=== PATIENT | male | born 1975 | race Caucasian/White ===

== ENCOUNTER 2022-03-21 | Inpatient (IN) | payer MEDICARE, MEDICAID, SELFPAY ==
[2022-03-21] VITALS (83 sets, daily range): BP systolic 96–175; BP diastolic 53–108; PULSE 60–99; RESP 11–22; TEMP 36.8–37.1; O2SAT 82–100; BMI 27.5
--- NOTE | 2022-03-21 00:19 | W.ED.ARRPALP ---
HPI - Arrhythmia/Palpitations General: Chief Complaint: Arrhythmia/Palpitations Stated Complaint: defibrillator went off Time Seen by Provider: 03/21/22 00:16 History of Present Illness: Mr. Gleason is a 47-year-old gentleman with some sort of heart history presents to the emergency department due to concern over ICD discharge. He is currently in enforcement custody and reports hearing intermittent beeping/alarming from his device. Additionally had approximately 830 he reports feeling like he got shocked and has associated chest discomfort. Denies other changes in health. No shortness of breath, lightheadedness, dizziness. No syncope associated with this event. He has been fairly long lost to follow-up however apparently was seen here at our facility at some point. No other specific changes in health, exacerbating, or alleviating factors identified. Patient reports initial pacemaker placement in his 20s when he presented to the hospital for syncope. He is unsure of exact diagnosis however denies alcohol or drug use at that time. He has not been on medications and is unsure of what he used to be on for some time. 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) Surgical History History of hernia surgery History of implantable cardioverter-defibrillator (ICD) placement Family History Father CAD (coronary artery disease) Pacemaker Mother Hypothyroidism Social History Smoking and tobacco status: never smoked Alcohol intake: never Physical Exam Const: COMMON NORMALS: alert GENERAL APPEARANCE: cooperative and well developed HENMT: COMMON NORMALS: normocephalic and atraumatic HEAD & SCALP: normocephalic and atraumatic Eye: COMMON NORMALS: conjunctivae normal CONJUNCTIVA: Yes conjunctivae normal SCLERA: sclerae normal Neck/C-Spine: COMMON NORMALS: supple GENERAL: Yes trachea midline Resp: COMMON NORMALS: normal respiratory effort and clear to auscultation bilaterally EFFORT & INSPECTION: Yes able to speak in complete sentences AUSCULTATION: clear to auscultation bilaterally Cardio: COMMON NORMALS: regular rate and regular rhythm RATE: regular rate RHYTHM: regular rhythm GI: COMMON NORMALS: Soft to palpation PALPATION: Yes Soft to palpation and No Tenderness to palpation present (GI) PERCUSSION: normal to percussion Extremity: GENERAL: Yes normal exam except as noted and No edema Neuro: COMMON NORMALS: moves all extremities SENSORIUM/ORIENTATION: Yes alert and No Orientation impaired Psych: COMMON NORMALS: mental status grossly normal and Normal thought process present THOUGHT PROCESS: Normal thought process present Course ED course: - Patient was seen and evaluated by me at bedside - Patient placed on cardiac monitors, IV access obtained - Initial evaluation notable for exam as above - Labs and xrays personally interpreted by me. EKG shows dual AV paced rhythm - Labs notable for no leukocytosis, normal hemoglobin. Metabolic panel without acute abnormality to explain symptoms/arrhythmia - Imaging notable for no lobar consolidation or pneumothorax - Per verbal report from [employer] interrogation patient's device has far past its end of service date, therefore no guarantee of any intervention if patient were to develop arrhythmia. They did not observe shocked that patient reported. Last interrogation 2015. The patient occasionally has episodes of NSVT most recently on 03/15. Additionally he has had atrial arrhythmias most recently on 03/19. There is a reported right lead integrity possible issue with over sensing and noise. - Upon serial reexamination after treatment the patient was somewhat - Based on patient history, evaluation, and testing as interpreted the most likely cause of the patient's condition is end of service for ICD with unclear event that patient reported as ICD discharge - The results of ED evaluation were discussed with the patient including plan for admission due to requirement for level of care not available if discharged to prevent significant worsening/deterioration. Specifically per [employer] report essentially his device may fail at any moment without additional intervention. - Admitting service was contacted and Dr Roberts with the hospitalist service. Agreed to admit the patient - Patient was admitted without further deterioration or significant events. Note: Click bubbles or prepopulated jo in note writing are used for assistance with data collection and billing and are inherently more limited than narrative and other text portions of this note. Please use narrative for additional clinical history and defer to narrative/free test for any case of contradictory information. If information appears in only free text or click bubble it should be considered present or absent as reported. Please contact note advertising copy writer for clarifications of clinical information or contradictory information. MDM is a brief summary, contradictory or erroneous seeming information should be clarified and full note should be reviewed. Vital Signs: Vital signs: Vital Signs Temperature 98 F 03/22/22 11:28 Pulse Rate 62 03/22/22 11:28 Respiratory Rate 20 H 03/22/22 11:28 Blood Pressure 99/59 03/22/22 11:28 Pulse Oximetry 98 03/22/22 11:28 Oxygen Delivery Me thod 03/22/22 04:00 MDM - Arrhythmia/Palpitations Medical Decision Making 47-year-old gentleman with unclear cardiac history with a longstanding history of ICD/pacemaker presenting to the ER for concern over alarm and discharge. Patient's device found to be at past [id number] and at risk for failure at any time. Admitted for further management. Medical Records I reviewed the patient's medical records. Lab Data I reviewed the patient's lab results. : 03/22/22 04:22 03/22/22 04:22 Radiology Impressions Chest X-Ray 03/21/22 00:28 IMPRESSION: 1. Bibasilar opacities may represent atelectasis. 2. Mild cardiomegaly on portable view. 3. Otherwise, no acute radiographic findings in the chest. Laboratory Results WBC 9.9 10^3/uL (4.0-10.0) 03/21/22 00:32 RBC 5.92 10^6/uL (4.1-5.3) H 03/21/22 00:32 Hgb 16.3 g/dL (11.7-16.6) 03/21/22 00:32 Hct 49.8 % (42.0-52.0) 03/21/22 00:32 MCV 84.1 fl (80-94) 03/21/22 00:32 MCH 27.5 pg (28.0-34.0) L 03/21/22 00:32 MCHC 32.7 g/dL (30.0-36.0) 03/21/22 00:32 RDW 14.8 % (12.1-15.1) 03/21/22 00:32 Plt Count 260 10^3/cmm (130-400) 03/21/22 00:32 MPV 8.1 fL (7.4-10.4) 03/21/22 00:32 Neut % (Auto) 61.9 % 03/21/22 00:32 Lymph % (Auto) 24.1 % 03/21/22 00:32 [place] % (Auto) 10.8 % 03/21/22 00:32 Eos % (Auto) 2.1 % 03/21/22 00:32 Baso % (Auto) 0.9 % 03/21/22 00:32 Neut # (Auto) 6.15 10^3/uL (1.8-7.7) 03/21/22 00:32 Lymph # (Auto) 2.4 10^3/uL (0.8-4.8) 03/21/22 00:32 [place] # (Auto) 1.1 10^3/uL (0.2-0.9) H 03/21/22 00:32 Eos # (Auto) 0.2 10^3/uL (0.0-0.8) 03/21/22 00:32 Baso # (Auto) 0.1 10^3/uL (0.0-0.1) 03/21/22 00:32 Nucleated RBC % (auto) 0 % 03/21/22 00:32 Nucleated RBCs # 0.0 /100WBC 03/21/22 00:32 Sodium 138 mmol/L (136-145) 03/21/22 00:32 Potassium 3.8 mmol/L (3.5-5.1) 03/21/22 00:32 Chloride 102 mmol/L (98-107) 03/21/22 00:32 Carbon Dioxide 24 mmol/L (22-29) 03/21/22 00:32 Anion Gap 15.8 (5-19) 03/21/22 00:32 BUN 18 mg/dL (6-20) 03/21/22 00:32 Creatinine 0.7 mg/dL (0.7-1.2) 03/21/22 00:32 GFR Calculation 120.9 mL/min (90-130) 03/21/22 00:32 Glucose 101 mg/dL (65-115) 03/21/22 00:32 Estimat Average Glucose 103 03/21/22 00:32 Hemoglobin A1c 5.2 % (4.0-6.0) 03/21/22 00:32 Calculated Osmolality 288 mOsm/kg (285-295) 03/21/22 00:32 Calcium 9.5 mg/dL (8.5-10.5) 03/21/22 00:32 Magnesium 2.2 mg/dL (1.7-2.3) 03/21/22 00:32 Total Bilirubin 0.6 mg/dL (0.15-1.2) 03/21/22 00:32 AST 15 U/L (0-40) 03/21/22 00:32 ALT 22 U/L (0-41) 03/21/22 00:32 Alkaline Phosphatase 121 IU/L (40-130) 03/21/22 00:32 Troponin T Baseline 6 ng/L (0-15) 03/21/22 00:32 NT-Pro-B Natriuret Pep 153 pg/mL (0-125) H 03/21/22 00:32 Total Protein 7.8 g/dL (6.6-8.7) 03/21/22 00:32 Albumin 4.6 g/dL (3.5-5.2) 03/21/22 00:32 Globulin 3.2 g/dL (1.3-4.6) 03/21/22 00:32 Triglycerides 112 mg/dL (0-150) 03/21/22 00:32 Cholesterol 223 mg/dL (0-200) H 03/21/22 00:32 LDL Cholesterol, Calc 154 mg/dL (50-129) H 03/21/22 00:32 HDL Cholesterol 47 mg/dL (60-100) L 03/21/22 00:32 LDL/HDL Ratio 3.28 RATIO (0.00-3.22) H 03/21/22 00:32 Cholesterol/HDL Ratio 4.74 mg/dL (1.0-5.00) 03/21/22 00:32 TSH 2.66 uIU/mL (0.27-4.20) 03/21/22 00:32 TSH 2.75 uIU/mL (0.27-4.20) 03/21/22 00:32 Discharge Plan Discharge Patient Disposition: Admitted As Inpatient Admit Provider: Tj Roberts Clinical Impression: Implantable cardioverter-defibrillator (ICD) at end of device life, Chest pain Condition: Stable Discharge Diet: Cardiac Discharge Activity: Increase activity as tolerated Coding Level of Care Code ED Water Superintendent for Lionel Villarreal
--- NOTE | 2022-03-21 00:23 | ECG_ITS ---
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 Measurements Intervals [place] Rate: 89 P: 56 WI: 157 QRS: -66 QRSD: 153 T: 87 QT: 415 QTc: 506 Interpretive Statements A sense V paced rhythm No previous ECG available for comparison Electronically Signed On 03-21-2022 18:41:17 CDT by Amelia Alcantar M.D. [id number] f
--- NOTE | 2022-03-21 00:28 | XRR_ITS ---
PROCEDURE INFORMATION: Exam: XR Chest Exam date and time: 03/21/2022 12:32 AM Age: 47 years old Clinical indication: Chest pressure; Prior surgery; Patient HX: Defibrillator fired. C/O chest pain. ; Additional info: Defib TECHNIQUE: Imaging protocol: Radiologic exam of the chest. Views: 1 view. COMPARISON: CR Cervical Spine Flex/Ext [id number] 07/24/2016 2:33 PM FINDINGS: Tubes, catheters and devices: A left-sided ICD is noted with the leads terminating in the right atrium , right ventricle, and coronary sinus. Lungs: Low lung volumes and bronchovascular crowding. Mild bibasilar opacities likely atelectasis. No consolidative opacity. Pleural spaces: The left costophrenic angle is obscured. Cannot exclude small left pleural effusion. No pneumothorax. Heart/Mediastinum: The cardiomediastinal silhouette is mildly prominent on portable view. Bones/joints: Unremarkable. XR/XR chest 1V portable [id number] IMPRESSION: 1. Bibasilar opacities may represent atelectasis. 2. Mild cardiomegaly on portable view. 3. Otherwise, no acute radiographic findings in the chest.
[2022-03-21 00:36] LABS: Basophils # 0.1 10^3/uL (0.0-0.1); Basophils % 0.9 %; Eosinophils # 0.2 10^3/uL (0.0-0.8); Eosinophils % 2.1 %; Hematocrit 49.8 % (42.0-52.0); Hemoglobin 16.3 g/dL (11.7-16.6); Lymphocytes # 2.4 10^3/uL (0.8-4.8); Lymphocytes % 24.1 %; Mean Corpuscular HGB Conc 32.7 g/dL (30.0-36.0); Mean Corpuscular Hemoglobin 27.5 pg (28.0-34.0); Mean Corpuscular Volume 84.1 fl (80-94); Mean Platelet Volume 8.1 fL (7.4-10.4); Monocytes # 1.1 10^3/uL (0.2-0.9); Monocytes % 10.8 %; Neutrophils # 6.15 10^3/uL (1.8-7.7); Neutrophils % 61.9 %; Nucleated Red Blood Cells % 0 %; Platelet Count 260 10^3/cmm (130-400); Red Blood Count 5.92 10^6/uL (4.1-5.3); Red Cell Distribution Width 14.8 % (12.1-15.1); White Blood Count 9.9 10^3/uL (4.0-10.0)
[2022-03-21 01:06] LABS: Troponin(5th) Baseline 6 ng/L (0-15)
[2022-03-21 01:16] LABS: Alanine Aminotransferase 22 U/L (0-41); Albumin Level 4.6 g/dL (3.5-5.2); Alkaline Phosphatase 121 IU/L (40-130); Anion Gap 15.8 (5-19); Aspartate Amino Transferase 15 U/L (0-40); Blood Urea Nitrogen 18 mg/dL (6-20); Calcium 9.5 mg/dL (8.5-10.5); Carbon Dioxide 24 mmol/L (22-29); Chloride 102 mmol/L (98-107); Globulin 3.2 g/dL (1.3-4.6); Glomerular Filtration Rate 120.9 mL/min (90-130); Glucose 101 mg/dL (65-115); Magnesium 2.2 mg/dL (1.7-2.3); NT Pro B Type Natriuretic Pept 153 pg/mL (0-125); Osmolality Calculated 288 mOsm/kg (285-295); Potassium 3.8 mmol/L (3.5-5.1); Sodium 138 mmol/L (136-145); Thyroid Stimulating Hormone 2.66 uIU/mL (0.27-4.20); Total Bilirubin 0.6 mg/dL (0.15-1.2); Total Protein 7.8 g/dL (6.6-8.7)
--- NOTE | 2022-03-21 02:28 | ECG_ITS ---
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 Measurements Intervals [place] Rate: 59 P: 138 NE: 164 QRS: -69 QRSD: 153 T: 89 QT: 445 QTc: 444 Interpretive Statements ELECTRONIC ATRIAL PACEMAKER ELECTRONIC VENTRICULAR PACEMAKER ABNORMAL RHYTHM ECG Compared to ECG 03/21/2022 00:23:12 No significant changes Electronically Signed On 03-21-2022 18:56:30 CDT by Amelia Alcantar M.D. [id number]
--- NOTE | 2022-03-21 03:17 | PM.HP ---
Providers/Chief Complaint Admitting Physician: Tj Roberts MD Chief Complaint: defibrillator went off, CP History of Present Illness Silvio Gleason is a 47 year old male with a past medical history of recurrent syncopal episodes status post ICD placement, fibromyalgia, chronic back pain, history of methamphetamine use, who presents [facility] for chest pain, and that he is hearing his pacemaker beep and go off. Patient tells me that he had a pacemaker placed in his 20s because he used to pass out. His father also had the same issue, had a pacemaker placement, his niece has the same issue she also had a pacemaker placed. Recently he has been noticing that the pacemaker has been going off, he feels that it shocked him in the last few weeks. He also has been hearing the pacemaker beep, he is also been experiencing left-sided chest pain, sharp pain, nonradiating, no lightheadedness, dizziness, no diaphoresis, no nausea, vomiting, he thinks he might of had a coronary angiogram, has never been diagnosed with CHF Review of Systems Const: Denies: fever(s), chills, fatigue or malaise Eyes: Denies: change in vision or blurry vision ENMT: Denies: nasal congestion Resp: Denies: dyspnea, productive cough, non-productive cough or wheezing GI: Denies: abdominal pain, nausea, vomiting, hematemesis or diarrhea : Denies: flank pain, difficulty urinating, dysuria or urinary frequency Skin/Breast: Denies: rash Neuro: Denies: headache(s) Medications/Allergies Allergies Allergy/AdvReac Type Severity Reaction Status Date / Time Penicillins Allergy ADR-Itching Verified 03/21/22 00:12 PFSH Acute PFSH: Medical History (Updated 03/21/22 @ 03:24 by Tj Roberts MD) History of back pain History of fibromyalgia History of syncope Surgical History (Updated 03/21/22 @ 03:24 by Tj Roberts MD) History of hernia surgery History of implantable cardioverter-defibrillator (ICD) placement Family History (Updated 03/21/22 @ 03:24 by Tj Roberts MD) Father CAD (coronary artery disease) Pacemaker Mother Hypothyroidism Social History (Updated 03/21/22 @ 03:25 by Tj Roberts MD) Smoking and tobacco status: never smoked Alcohol intake: never Substance/Drug Use: current Substance/Drug use type: Methamphetamine Other substance/drug use details: Last use a month ago Vitals/I&O/Wt Last Vital Signs Temp 98.3 F 03/21/22 00:12 Pulse 71 03/21/22 02:01 Resp 14 03/21/22 02:01 BP 147/84 03/21/22 02:01 Pulse Ox 96 03/21/22 02:01 O2 Del Method 03/21/22 00:12 Physical Exam Const: COMMON NORMALS: no acute distress and patient oriented x3 HENMT: COMMON NORMALS: normocephalic HEAD & SCALP: normocephalic Eye: COMMON NORMALS: Equal, round and reactive pupils present and EOMs intact bilaterally Neck/C-Spine: COMMON NORMALS: no JVD Resp: COMMON NORMALS: normal respiratory effort, No retractions, No use of accessory muscles and clear to auscultation bilaterally AUSCULTATION: clear to auscultation bilaterally Cardio: COMMON NORMALS: no JVD, regular rate, regular rhythm, S1 normal heart sound present and S2 normal heart sound present RATE: regular rate RHYTHM: regular rhythm HEART SOUNDS: S1 normal heart sound present and S2 normal heart sound present GI: COMMON NORMALS: Normal to inspection, nondistended, normoactive bowel sounds present, Soft to palpation, non-tender, No hepatosplenomegaly present, no masses and no bruits PALPATION: Yes Soft to palpation and Yes No hepatosplenomegaly present Extremity: COMMON NORMALS: capillary refill normal, no clubbing, cyanosis or edema, no calf tenderness and no pedal edema Neuro: COMMON NORMALS: patient oriented x3, CN's II-XII intact bilaterally, moves all extremities and no focal motor deficits Psych: COMMON NORMALS: mental status grossly normal Data : 03/21/22 00:32 03/21/22 00:32 A&P Assessment and plan (1) Chest pain: Status: Acute (2) Implantable cardioverter-defibrillator (ICD) at end of device life: Status: Acute (3) Pacemaker lead malfunction: Status: Acute Plan Chest pain -Aspirin, statin, hold off on beta-rosalva -Cardiac echo -Serial EKGs, serial troponins -He has had frequent VT episodes, AT AF episodes -He does admit to methamphetamine use -Has been incarcerated in the last month Pacemaker placed in 2010 for recurrent syncopal episodes, patient has not he has a family history of pacemaker placement Pacemaker issue -On December 06, 2021, voiding of low battery voltage -January 14 morning, lead integrity warning, hydrate NS episodes, sensing integrity counter -No treated episodes -Has had 40 monitored VT episodes most recent was March 15, 2022, 307 AT?AF episodes most recent March 19 we will have to discuss with Dr. Ceron in cardiology in the morning about replacement -We will need to discuss with cardiology in the morning, and Dr. Craft Attestations Medical Necessity Statement*: Patient requires hospitalization, inpatient, greater than 2 midnights, for chest pain, pacemaker issue Coding Level of Care Code Acute Aluminum Molder for Trishag Agustind Diagnoses Chest pain R07.9 Implantable cardioverter-defibrillator (ICD) at end of device life Z45.02 Pacemaker lead malfunction T82.110A
--- NOTE | 2022-03-21 04:01 | USCV_ITS ---
Silvio Gleason Age: 47 Gender: M : 1975 Exam Date: 03/21/2022 05:44 Ordering Phys: Tj Roberts MD Technologist: NATALYA Exam Location: [place] Indication: SHORTNESS OF BREATH BP: 152 / 93 HR: 59 Rhythm: Sinus Technical Quality: Adequate MEASUREMENTS (Male / Female) Normal Values 2D ECHO LV Diastolic Diameter PLAX 5.4 cm 4.2 - 5.9 / 3.9 - 5.3 cm LV Systolic Diameter PLAX 4.4 cm IVS Diastolic Thickness 1.7 cm 0.6 - 1.0 / 0.6 - 0.9 cm IVS Systolic Thickness 1.8 cm LVPW Diastolic Thickness 1.3 cm 0.6 - 1.0 / 0.6 - 0.9 cm LVPW Systolic Thickness 2.0 cm LVOT Diameter 2.0 cm LV Ejection Fraction 2D Teich 38.3 % LV Ejection Fraction MOD 2C 48.5 % LV Ejection Fraction 2C AL 50.1 % LA Diameter 3.0 cm LA Width 2.5 cm LA Height 5.0 cm RA Width 2.9 cm RA Height 3.8 cm Aorta at Sinotubular Diameter 2.6 cm IVC Diameter 2.0 cm M-MODE Aortic Annulus Diameter 3.6 cm LA Ao Ratio MM 0.8 MV E Point Septal Separation 0.8 cm DOPPLER AV Peak Velocity 116.0 cm/s LVOT Peak Velocity 97.0 cm/s AV Area Cont Eq vti 2.4 cm squared AV Area Cont Eq pk 2.7 cm squared MV Peak Velocity 78.0 cm/s MV Area PHT 4.5 cm squared Mitral E to A Ratio 1.4 MV E' Velocity 69.0 cm/s TR Peak Velocity 210.4 cm/s TR Peak Gradient 17.7 mmHg TR Mean Velocity 179.3 cm/s TR Mean Gradient 13.1 mmHg TR Velocity Time Integral 68.0 cm TV Peak E Velocity 56.0 cm/s Right Atrial Pressure 3.0 mmHg Pulmonary Artery Systolic Pressu 20.7 mmHg PV Peak Velocity 140.0 cm/s RV Acceleration Time 0.1 s RV Ejection Time 0.3 s RV AcT/ET 0.2 FINDINGS Left Ventricle The left ventricle is mildly dilated. The basal septum appears to be akinetic with somewhat dyskinetic mid septum. There is an echodensity in the mid septal region? Postsurgical. Relative hypokinesia of the inferior wall segments Right Ventricle Pacemaker/defibrillator wire is noted. Normal RV size and ejection fraction Right Atrium Pacemaker wire is noted on the right 8 Left Atrium Appears to be of normal size Mitral Valve Thickened mitral valve. Trace mitral valve regurgitation. Aortic Valve No gross abnormalities noted Tricuspid Valve Trace tricuspid valve regurgitation. Pulmonic Valve No gross abnormalities noted Pericardium No pericardial effusion. Aorta Normal aortic annulus size. IVC Normal inferior vena cava. CONCLUSIONS Mildly dilated LV with adiminished ejection fraction of 50%. Wall motion normalities as mentioned above. Echodensity on the interventricular septum, ? Postsurgical Thickened mitral valve. Trace mitral valve regurgitation. Trace tricuspid valve regurgitation. Pacemaker/defibrillator wire in the right atrium and right ventricle There is no pericardial effusion. No previous study is available for comparison. Dr Estrella Farris MD FACC (Electronically Signed) Final Date: 21 March 2022 10:31 S
[2022-03-21 04:03] LABS: Troponin 5 2HR Delta 0 ABS# (0-10)
[2022-03-21 04:03] LABS: NT Pro B Type Natriuretic Pept 228 pg/mL (0-125)
[2022-03-21 04:22] LABS: Estmated Average Glucose 103; Hemoglobin A1C 5.2 % (4.0-6.0)
[2022-03-21 04:56] LABS: Chol HDL Ratio 4.74 mg/dL (1.0-5.00); Cholesterol 223 mg/dL (0-200); HDL Cholesterol 47 mg/dL (60-100); LDL Cholesterol Calculated 154 mg/dL (50-129); LDL HDL Ratio 3.28 RATIO (0.00-3.22); Thyroid Stimulating Hormone 2.75 uIU/mL (0.27-4.20); Triglycerides 112 mg/dL (0-150)
--- NOTE | 2022-03-21 06:19 | ECG_ITS ---
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 Measurements Intervals [place] Rate: 59 P: 140 [place]: 165 QRS: -66 QRSD: 150 T: 87 QT: 453 QTc: 452 Interpretive Statements ELECTRONIC ATRIAL PACEMAKER ELECTRONIC VENTRICULAR PACEMAKER ABNORMAL RHYTHM ECG Compared to ECG 03/21/2022 02:15:26 No significant changes Electronically Signed On 03-21-2022 18:56:11 CDT by Amelia Alcantar M.D. [id number]
[2022-03-21 07:13] LABS: Troponin 5 6HR 6.16 ng/L (0-15)
[2022-03-21 07:27] LABS: Troponin 5 6HR Delta 0.16 ng/L (0-12)
[2022-03-21] MEDS: amlodipine 10 mg Tablet PO (08:14)
--- NOTE | 2022-03-21 08:17 | PC.PHAR ---
pt states he takes no rx medications-pt states only takes 81mg aspirin in the am no meds pull up on ext med history
--- NOTE | 2022-03-21 09:47 | P.CONIM_ITS ---
Providers/Reason For Consult Consulting Physician/Specialty*: LUTHER Farris MD/cardiology Reason for Consult*: Patient with has PRECINCT CAPTAIN-D/having MANJIT Requesting Physician: Dr. Thomas Attending Physician: Danielle Thomas MD Primary Care Provider: Michelle Mariee History of Present Illness History of Present Illness Silvio Gleason is a 47 year old male with a history of ventricular arrhythmia, recurrent syncope, is admitted to the hospital with complaints of generalized weakness/ chest pain. He has a PRECINCT CAPTAIN-D which has been making noise for the last few weeks. The device interrogation revealed MANJIT. Cardiology consult is requested for further cardiac evaluation recommendations. This patient is a very poor historian.Patient is complaining of some vague chest pain on the left side of the chest. According to him, it is more or less c onstant. No associated shortness of breath, nausea or sweating. There may be some waxing and waning of pain. Patient has been under police custody for the last 1 month or so. He just got released. He was incarcerated for probation violation? He had a PRECINCT CAPTAIN-D,? Revision in [address] Perez at the [facility] in [facility]. The initial device was implanted by Dr. Espino at the [facility]. This patient apparently has not been to a physician for the last 2 years. He used to be followed by Dr. Fitzgerald for his heart condition and Ms Michelle Mariee as the primary care provider. He has not been to either of them for the last 2 years or so. Device showed MANJIT in November of this year.According the patient, he has not had a syncopal episode. He seems to think that he might have had a shock from the device yesterday, but is not sure. The reason for the device implantation is not very clear. Historyis suggesting that he had ventricular tachycardias. Had multiple ICD discharges over the years. He has not been taking any prescription medication for the last 2 years or so. Denies any fever or chills. No cough. He has no history for congestive heart failure. His father had an ICD ?. There is a family history of heart disease but the patient is not sure as to what kind. Patient has a history of smoking abuse and methamphetamine abuse. Questionable history of elevated blood pressure. No history for diabetes. He had a coronary angiograms in the past and was told to have no blockages(?). Review of Systems Narrative: CONSTITUTIONAL: No fever or chills. EYES: No blurring of vision or other visual disturbances lately. ENT: No hoarseness of voice, auditory disturbances or sore throat. CARDIOVASCULAR: As mentioned above. RESPIRATORY: No significant cough. GASTROINTESTINAL: No hematemesis or melena. GENITOURINARY: No dysuria or hematuria. INTEGUMENTARY: No skin rashes or history of skin cancer. NEURO: No transient ischemic attacks or amaurosis. PSYCHIATRIC: No history of psychosis or major depression. HEMATOLOGIC: No bleeding disorders or significant anemia. ENDOCRINE: No history of polyuria or polydipsia. MUSCULOSKELETAL: No recent joint pain or swelling. ALLERGY/IMMUNOLOGY: As mentioned above. Medications/Allergies Home Medications Medication Instructions Recorded Confirmed Last Taken Type aspirin 81 mg tablet,delayed 81 mg PO QAM 03/21/22 03/21/22 Unknown History release Allergies Allergy/AdvReac Type Severity Reaction Status Date / Time Penicillins Allergy ADR-Itching Verified 03/21/22 08:17 Current Medications Generic Name Dose Route Start Last Admin Trade Name Freq PRN Reason Stop Dose Admin Amlodipine Besylate 10 mg 03/21/22 09:00 03/21/22 08:14 Amlodipine 10 Mg Tablet PO 10 mg DAILY SUPRIYA Administration Aspirin 81 mg 03/21/22 09:00 03/21/22 08:22 Aspirin 81 Mg Ec Tablet PO Not Given DAILY SUPRIYA PFSH Acute PFSH: Medical History History of back pain History of fibromyalgia History of syncope Surgical History History of hernia surgery History of implantable cardioverter-defibrillator (ICD) placement Family History Father CAD (coronary artery disease) Pacemaker Mother Hypothyroidism Social History Smoking and tobacco status: never smoked Alcohol intake: never Substance/Drug Use: current Substance/Drug use type: Methamphetamine Other substance/drug use details: Last use a month ago Vitals/I&O/Wt Last Vital Signs Temp 98.7 F 03/21/22 08:00 Pulse 60 03/21/22 08:00 Resp 15 03/21/22 08:00 BP 133/81 03/21/22 08:00 Pulse Ox 96 03/21/22 08:00 O2 Del Method 03/21/22 04:02 03/20/22 03/21/22 03/21/22 22:59 06:59 14:59 Intake Total 0 / 0 0 / 0 Output Total 0 / 0 0 / 0 Balance 0 / 0 0 / 0 Weight last 48 hrs Weight 202 lb 12.8 oz Physical Exam Narrative: GENERAL: The patient is alert and oriented times three. Not in any acute distress. HEENT: No significant pallor, icterus or lymphadenopathy.Oral cavity: There are no mucous membrane lesions. Pupils are symmetrical. Fundus is not visualized. NECK: Trachea appears to be central. No masses noted. No JVD or thyromegaly appreciated. RESPIRATORY: Chest is symmetrical. No intercostals muscle retraction or any accessory muscle activation. Multiple healed scars in the left pectoralis region. There is no chest wall tenderness. Breath sounds are heard bilaterally. No rales or rhonchi heard. No evidence of any consolidation. BREASTS: Deferred. HEART: The heart sounds are normal. No S3 or S4. No significant murmurs. No pericardial rub ABDOMEN: No vessel pulsations or distention. No tenderness. No organomegaly appreciated. Bowel sounds are normally heard. Scars in the right lower quadrant, appears to have healed well : Deferred. RECTAL: Deferred. LYMPHATIC: No lymphadenopathy noted in the neck. EXTREMITIES: No edema or cyanosis. No clubbing. MUSCULOSKELETAL: No acute joint deformities or swelling SKIN: There are no significant rashes or ecchymosis NEUROPSYCHIATRIC: The patient is alert and oriented x3. Appears to be in a good mood. No tremors or rigidity noted. Data : 03/21/22 00:32 03/21/22 00:32 Other Labs: Laboratory Last Values WBC 9.9 10^3/uL (4.0-10.0) 03/21/22 00:32 RBC 5.92 10^6/uL (4.1-5.3) H 03/21/22 00:32 Hgb 16.3 g/dL (11.7-16.6) 03/21/22 00:32 Hct 49.8 % (42.0-52.0) 03/21/22 00:32 MCV 84.1 fl (80-94) 03/21/22 00:32 MCH 27.5 pg (28.0-34.0) L 03/21/22 00:32 MCHC 32.7 g/dL (30.0-36.0) 03/21/22 00:32 RDW 14.8 % (12.1-15.1) 03/21/22 00:32 Plt Count 260 10^3/cmm (130-400) 03/21/22 00:32 MPV 8.1 fL (7.4-10.4) 03/21/22 00:32 Neut % (Auto) 61.9 % 03/21/22 00:32 Lymph % (Auto) 24.1 % 03/21/22 00:32 [place] % (Auto) 10.8 % 03/21/22 00:32 Eos % (Auto) 2.1 % 03/21/22 00:32 Baso % (Auto) 0.9 % 03/21/22 00:32 Neut # (Auto) 6.15 10^3/uL (1.8-7.7) 03/21/22 00:32 Lymph # (Auto) 2.4 10^3/uL (0.8-4.8) 03/21/22 00:32 [place] # (Auto) 1.1 10^3/uL (0.2-0.9) H 03/21/22 00:32 Eos # (Auto) 0.2 10^3/uL (0.0-0.8) 03/21/22 00:32 Baso # (Auto) 0.1 10^3/uL (0.0-0.1) 03/21/22 00:32 Nucleated RBC % (auto) 0 % 03/21/22 00:32 Nucleated RBCs # 0.0 /100WBC 03/21/22 00:32 Sodium 138 mmol/L (136-145) 03/21/22 00:32 Potassium 3.8 mmol/L (3.5-5.1) 03/21/22 00:32 Chloride 102 mmol/L (98-107) 03/21/22 00:32 Carbon Dioxide 24 mmol/L (22-29) 03/21/22 00:32 Anion Gap 15.8 (5-19) 03/21/22 00:32 BUN 18 mg/dL (6-20) 03/21/22 00:32 Creatinine 0.7 mg/dL (0.7-1.2) 03/21/22 00:32 GFR Calculation 120.9 mL/min (90-130) 03/21/22 00:32 Glucose 101 mg/dL (65-115) 03/21/22 00:32 Estimat Average Glucose 103 03/21/22 00:32 Hemoglobin A1c 5.2 % (4.0-6.0) 03/21/22 00:32 Calculated Osmolality 288 mOsm/kg (285-295) 03/21/22 00:32 Calcium 9.5 mg/dL (8.5-10.5) 03/21/22 00:32 Magnesium 2.2 mg/dL (1.7-2.3) 03/21/22 00:32 Total Bilirubin 0.6 mg/dL (0.15-1.2) 03/21/22 00:32 AST 15 U/L (0-40) 03/21/22 00:32 ALT 22 U/L (0-41) 03/21/22 00:32 Alkaline Phosphatase 121 IU/L (40-130) 03/21/22 00:32 Troponin T Baseline 6 ng/L (0-15) 03/21/22 00:32 Troponin T 120 Minute 6.00 ng/L (0-15) 03/21/22 03:13 Delta Troponin T 0 ABS# (0-10) 03/21/22 03:13 Troponin T Hi Sens 6Hr 6.16 ng/L (0-15) 03/21/22 06:26 Troponin T Hi Sens 6Hr Delta 0.16 ng/L (0-12) 03/21/22 06:26 NT-Pro-B Natriuret Pep 228 pg/mL (0-125) H 03/21/22 Unknown Total Protein 7.8 g/dL (6.6-8.7) 03/21/22 00:32 Albumin 4.6 g/dL (3.5-5.2) 03/21/22 00:32 Globulin 3.2 g/dL (1.3-4.6) 03/21/22 00:32 Triglycerides 112 mg/dL (0-150) 03/21/22 00:32 Cholesterol 223 mg/dL (0-200) H 03/21/22 00:32 LDL Cholesterol, Calc 154 mg/dL (50-129) H 03/21/22 00:32 HDL Cholesterol 47 mg/dL (60-100) L 03/21/22 00:32 LDL/HDL Ratio 3.28 RATIO (0.00-3.22) H 03/21/22 00:32 Cholesterol/HDL Ratio 4.74 mg/dL (1.0-5.00) 03/21/22 00:32 TSH 2.66 uIU/mL (0.27-4.20) 03/21/22 00:32 TSH 2.75 uIU/mL (0.27-4.20) 03/21/22 00:32 EKG 1: My Interpretation: 100% a paced V paced rhythm. Further interpretation is not possible. EKG computer-generated impression: Chest X-Ray 03/21/22 00:28 IMPRESSION: 1. Bibasilar opacities may represent atelectasis. 2. Mild cardiomegaly on portable view. 3. Otherwise, no acute radiographic findings in the chest. A&P Assessment and plan (1) Implantable cardioverter-defibrillator (ICD) at end of device life: The patient is device went into MANJIT on 06 December of this year. Patient requires a device revision. This needs to be done as soon as possible. He appears to be 100% AV paced. Status: Acute (2) Chest pain: The etiology of the chest pain is not clear. The symptoms are very atypical. No evidence of any myocardial injury. Apparently was told to have no blockages by previous angiograms?. We need to get the medical records from [place]. Status: Acute (3) Pacemaker lead malfunction: Ventricular lead has a lead alert since January of last year. The ventricular lead appears to have a low impedance. The lead may need to be replaced. Status: Acute Plan Patient requires a device revision with a possible lead replacement. I will ask the [employer] sales representative door to door to come and do a detailed interrogation and then will decide on further management. He needs to be closely monitored on telemetry. Based on his clinical progress, further recommendations will be made. Consult Attestations Medical Necessity Statement: Patient requires continued hospital stay for close monitoring and further management Coding Level of Care Code Acute Loan Services Professional for Chg Fwd History Detailed Exam Detailed Medical Decision Making High Complexity Diagnoses Implantable cardioverter-defibrillator (ICD) at end of device life Z45.02 Chest pain R07.9 Pacemaker lead malfunction T82.110A
[2022-03-21 12:26] LABS: Amphetamines Screen Urine Negative (Negative); Barbiturates Screen Urine Negative (Negative); Benzodiazepines Screen Urine Negative (Negative); Cocaine Screen Urine Negative (Negative); Opiate Screen Urine Negative (Negative); PCP Screen Urine Negative (Negative); THC Screen Urine Negative (Negative)
--- NOTE | 2022-03-21 12:38 | PM.MISC ---
Miscellaneous Note Note: Patient is stating that [facility], for last few weeks he has been experiencing abnormal sounds of his pacemaker It was placed 2009 battery has now been replaced as per the patient Is no complaining active chest pain or shortness of breath Not reliable historian Currently hemodynamically stable No active chest pain 100% paced rhythm Abdomen soft No signs of edema Assessment and plan I have consulted Dr. Farris This patient might need revision of his pacemaker Currently hemodynamically stable Monitoring ICU Recent device interrogation revealed MANJIT on 06 December Lead malfunctioning Patient is full code Patient is stating that there is no family at all in case something happens to him there is no one to be contacted, Pacemaker interrogation Requesting records from [place]
--- NOTE | 2022-03-21 12:55 | PM.CONSULT ---
Providers/Reason For Consult Consulting Physician/Specialty*: Dr. Craft/cardiothoracic surgery Reason for Consult*: AICD generator at end of service Requesting Physician: Dr. Farris Attending Physician: Danielle Thomas MD History of Present Illness History of Present Illness Silvio Gleason is a 47 year old male whom I been consulted to see for AICD generator exchange with a current device now at end of service. Apparently the device was originally implanted in his 20s for recurrent ventricular arrhythmias and has had numerous discharges. He has had the generator replaced several years ago and currently now has a generator end of service. He is noted beeping for the past 2 to 3 days and believes he may have received a discharge yesterday. He was recently incarcerated though has currently been released. Original device with implanted in [facility] with a revision in [address] Fitzgerald at [facility] in [place]. Apparently there is a familial history for ventricular arrhythmias with his father having an ICD device and possibly his sister as well. [employer] territory representative has interrogated the device today and notes that the leads appear to be appropriate and that the generator is at end of service. There has been an original report that the ventricular lead had a low impedance though apparently on today's interrogation, this is not the case. Dr. Farris has requested that I perform this generator exchange. Review of Systems Card: Reports: chest pain, palpitations, irregular heart rhythm and dyspnea on exertion Resp: Denies: productive cough, non-productive cough or hemoptysis Musc: Denies: joint swelling, joint redness or muscle cramps Neuro: Denies: numbness in extremities, weakness in extremities or difficulty walking All/Imm: Reports: other (Allergy to penicillin) Medications/Allergies Home Medications Medication Instructions Recorded Confirmed Last Taken Type aspirin 81 mg tablet,delayed 81 mg PO QAM 03/21/22 03/21/22 Unknown History release Allergies Allergy/AdvReac Type Severity Reaction Status Date / Time Penicillins Allergy ADR-Itching Verified 03/21/22 08:17 Current Medications Generic Name Dose Route Start Last Admin Trade Name Freq PRN Reason Stop Dose Admin Amlodipine Besylate 10 mg 03/21/22 09:00 03/21/22 08:14 Amlodipine 10 Mg Tablet PO 10 mg DAILY SUPRIYA Administration Aspirin 81 mg 03/21/22 09:00 03/21/22 08:22 Aspirin 81 Mg Ec Tablet PO Not Given DAILY SUPRIYA PFSH Acute PFSH: Medical History History of back pain History of fibromyalgia History of syncope Surgical History History of hernia surgery History of implantable cardioverter-defibrillator (ICD) placement Family History Father CAD (coronary artery disease) Pacemaker Mother Hypothyroidism Social History Smoking and tobacco status: never smoked Alcohol intake: never Substance/Drug Use: current Substance/Drug use type: Methamphetamine Other substance/drug use details: Last use a month ago Vitals/I&O/Wt Last Vital Signs Temp 98.7 F 03/21/22 12:00 Pulse 60 03/21/22 12:00 Resp 15 03/21/22 12:00 BP 133/81 03/21/22 12:00 Pulse Ox 96 03/21/22 12:00 O2 Del Method 03/21/22 04:02 03/20/22 03/21/22 03/21/22 22:59 06:59 14:59 Intake Total 0 / 0 0 / 0 Output Total 0 / 0 1100 / 1100 Balance 0 / 0 -1100 / -1100 Weight last 48 hrs Weight 202 lb 12.8 oz Physical Exam Const: COMMON NORMALS: patient oriented x3 HENMT: COMMON NORMALS: normocephalic, atraumatic, hearing grossly normal bilaterally and external ears normal HEAD & SCALP: normocephalic and atraumatic EXTERNAL EAR: Yes external ears normal Eye: COMMON NORMALS: EOMs intact bilaterally and no scleral icterus Neck/C-Spine: COMMON NORMALS: full ROM, no lymphadenopathy and No carotid bruits Chest: OTHER: Palpable generator in the left anterior chest wall. He has scarring both on the left subclavicular region and distal right subclavicular region where an apparent coronary sinus wire has been placed. Resp: COMMON NORMALS: normal respiratory effort, No use of accessory muscles and clear to auscultation bilaterally AUSCULTATION: clear to auscultation bilaterally Cardio: COMMON NORMALS: regular rate, regular rhythm, S1 normal heart sound present and No murmurs present (Cardio) RATE: regular rate RHYTHM: regular rhythm HEART SOUNDS: S1 normal heart sound present GI: COMMON NORMALS: Normal to inspection, nondistended, normoactive bowel sounds present Extremity: COMMON NORMALS: no clubbing, cyanosis or edema Neuro: COMMON NORMALS: patient oriented x3, moves all extremities, no focal motor deficits and no sensory deficits noted Data : 03/21/22 00:32 03/21/22 00:32 A&P Assessment and plan (1) Implantable cardioverter-defibrillator (ICD) at end of device life: AICD at end of service first recorded in November of this year. Most recent interrogation today reveals that the concerning RV lead is functioning appropriately Chest x-ray is clear with a atrial and RV lead as well was appear to be a coronary sinus lead arising from the right subclavian approach with the proximal portion of the lead appeared to cross midline back to the generator. Rationale for generator exchange was discussed With Mr. Gleason who is quite aware of this having had previously had his original generator changed once already. We will attentively plan for generator exchange this evening at 4 PM. Patient has been n.p.o. since this morning. We will utilize vancomycin as already prophylactic antibiotic as he has reported allergy to penicillin. Status: Acute Consult Attestations Medical Necessity Statement: AICD end of service Coding Level of Care Code New Pt Acute Manufacturing Project Manager for Chg Fwd Patient Type New History Detailed Exam Detailed Medical Decision Making Moderate Complexity Diagnoses Implantable cardioverter-defibrillator (ICD) at end of device life Z45.02 Time Spent (min) 30
--- NOTE | 2022-03-21 13:02 | P.ANESASSM_ITS ---
Pre-Anesthetic Assessment Height/Weight: Height 1.83 m Weight 91.989 kg Temp Pulse Resp BP Pulse Ox O2 Del Method 98.7 F 60 15 133/81 96 03/21/22 12:00 03/21/22 12:00 03/21/22 12:00 03/21/22 12:00 03/21/22 12:00 03/21/22 04:02 Preop Diagnosis: End of life ICD Generator exchange Familial anesthetic complications: None Was Beta Thiago taken within 24 hours: N/A Was Clonidine taken within 24 hours: N/A Last intake: 03/20/22 Social Tobacco Hx of smoking, methamphetamine use Exam alert, oriented x 3, clear to auscultation bilaterally and regular rate & rhythm Airway Submandibular: within normal limits Cervical ROM: within normal limits Mallampati: Class I Comments: Comments: chipped teeth History/ROS No significant complaints Pulmonary None reported CXR 03/21/22 XR/XR chest 1V portable [id number] IMPRESSION: 1. Bibasilar opacities may represent atelectasis. 2. Mild cardiomegaly on portable view. 3. Otherwise, no acute radiographic findings in the chest. ? CV/HEM Arrythmia (ventricular arrhythmia hx, 100% AV paced ) Admitted w/ weakness and CP 100% paced rhythm ICD at end of life EKG 03/21/22 ?Interpretive Statements ELECTRONIC ATRIAL PACEMAKER ELECTRONIC VENTRICULAR PACEMAKER ABNORMAL RHYTHM ECG Compared to ECG 03/21/2022 02:15:26 No significant changes [email or web address] 03/21/22 TTE CONCLUSIONS ?Mildly dilated LV with adiminished ejection fraction of 50%. ?Wall motion normalities as mentioned above. ?Echodensity on the interventricular septum, ?? Postsurgical ?Thickened mitral valve. Trace mitral valve regurgitation. ?Trace tricuspid valve regurgitation. ?Pacemaker/defibrillator wire in the right atrium and right ?ventricle ?There is no pericardial effusion. ?No previous study is available for comparison. None reported Hepatic None reported GI None reported Metabolic Hyperlipidemia Musc/skel Fibromyalgia and Lower Back Pain Neuropsych None reported Anesthetic Plan ASA status: 3 Anesthesia: Anesthesia Evaluation and MAC Other: We discussed risk and benefits of general anesthesia including PONV, sore throat (sometimes severe), corneal abrasion, positioning and peripheral nerve injuries, life threatening allergic reaction, post operative ICU admission requiring prolonged intubation, aspiration, stroke, heart attack, , and rare incidences of recall. I discussed with the patient risks, goals, and benefits of MAC and general anesthesia. We discussed spectrum of MAC anesthesia including conversion to general as well as possibility of recall of intraoperative stimuli including discomfort/pain. Patient consents to MAC or General pending further discussion with surgeon. Risk of > 500 ml blood loss (7ml/kg in children): No Medications/Allergies Home Medications Medication Instructions Recorded Confirmed Last Taken Type aspirin 81 mg tablet,delayed 81 mg PO QAM 03/21/22 03/21/22 Unknown History release Allergies Allergy/AdvReac Type Severity Reaction Status Date / Time Penicillins Allergy ADR-Itching Verified 03/21/22 08:17 Current Medications Generic Name Dose Route Start Last Admin Trade Name Freq PRN Reason Stop Dose Admin Amlodipine Besylate 10 mg 03/21/22 09:00 03/21/22 08:14 Amlodipine 10 Mg Tablet PO 10 mg DAILY SUPRIYA Administration Aspirin 81 mg 03/21/22 09:00 03/21/22 08:22 Aspirin 81 Mg Ec Tablet PO Not Given DAILY SUPRIYA [facility] Anesthesia Medical History History of back pain History of fibromyalgia History of syncope Surgical History History of hernia surgery History of implantable cardioverter-defibrillator (ICD) placement Family History Father CAD (coronary artery disease) Pacemaker Mother Hypothyroidism Social History Smoking and tobacco status: never smoked Alcohol intake: never Substance/Drug Use: current Substance/Drug use type: Methamphetamine Other substance/drug use details: Last use a month ago Data Anesthesia : 03/21/22 00:32 03/21/22 00:32 Short CBC 03/21/22 Range/Units 00:32 WBC 9.9 (4.0-10.0) 10^3/uL Hgb 16.3 (11.7-16.6) g/dL Hct 49.8 (42.0-52.0) % MCV 84.1 (80-94) fl Plt Count 260 (130-400) 10^3/cmm Neut % (Auto) 61.9 % Neut # (Auto) 6.15 (1.8-7.7) 10^3/uL BMP 03/21/22 00:32 Sodium 138 Potassium 3.8 Chloride 102 Carbon Dioxide 24 BUN 18 Creatinine 0.7 Glucose 101 Calcium 9.5 Cardiac Enzymes 03/21/22 03/21/22 03/21/22 Range/Units 00:32 00:32 03:13 Troponin T Baseline 6 (0-15) ng/L Troponin T 120 Minute 6.00 (0-15) ng/L Delta Troponin T 0 (0-10) ABS# Troponin T Hi Sens 6Hr (0-15) ng/L Troponin T Hi Sens 6Hr Delta (0-12) ng/L NT-Pro-B Natriuret Pep 153 H (0-125) pg/mL 03/21/22 03/21/22 Range/Units 06:26 Unknown Troponin T Baseline (0-15) ng/L Troponin T 120 Minute (0-15) ng/L Delta Troponin T (0-10) ABS# Troponin T Hi Sens 6Hr 6.16 (0-15) ng/L Troponin T Hi Sens 6Hr Delta 0.16 (0-12) ng/L NT-Pro-B Natriuret Pep 228 H (0-125) pg/mL Liver Function 03/21/22 Range/Units 00:32 Total Bilirubin 0.6 (0.15-1.2) mg/dL AST 15 (0-40) U/L ALT 22 (0-41) U/L Alkaline Phosphatase 121 (40-130) IU/L Albumin 4.6 (3.5-5.2) g/dL Cardiac Studies: Echocardiogram 03/21/22
[2022-03-21] MEDS: chlorhexidine gluconate 4% Btl 118 mL 1 APPLIC TOPICAL (13:25)
[2022-03-21] MEDS: lactated ringers 1,000 ML 150 ML IV (13:40)
[2022-03-21] MEDS: vancomycin 1,500 MG/300 ML PIGGYBACK 200 MG IV (15:57)
[2022-03-21] MEDS: vancomycin 1,000 MG SDV 1000 MG IRRIGATION (16:25)
--- NOTE | 2022-03-21 16:53 | SUR.OPER ---
[id number] GENERATOR REMOVED ENTIRELY, INSPECTED BY DR SALVADOR. EXPLANTED DEFIB SENT WITH [employer] [employer] REP
--- NOTE | 2022-03-21 17:02 | SUR.OPER ---
1702 REPORT GIVEN TO SHERON CALIXTO. NO FURTHER INFORMATION NEEDED
--- NOTE | 2022-03-21 17:11 | PM.OP ---
Operative Report Date of procedure: March 21, 2022 Pre-op diagnosis: Preop Diagnosis End of life ICD Post-op diagnosis: same Procedure done: AICD generator exchange Implants: Medtronic AICD generator Specimens removed/disposition: Old Medtronic generator delivered to [employer] medical claims representative Pathology: none sent Surgeon: Fred Craft Anesthesia: MAC and Local Complications: None Condition: stable Disposition: ICU Brief History: Mr. Gleason is a 47-year-old gentleman with a longstanding history for malignant ventricular arrhythmias with AICD in position including coronary sinus lead. His original AICD was placed at age 22 and has had 1 replacement since that time. His current generator is now at end of service. Preoperative lead interrogations reveal all leads to be functioning appropriately. We have recommended generator exchange. Details and risk of the procedure were discussed. Proper consents have been reviewed and signed. Procedure: Mr. Gleason was taken to the operating room suite and carefully positioned on the OR table. He was carefully secured over protective padding. Anesthesia monitored conscious sedation was administered. His entire chest was then sterilely prepped and draped. 1% lidocaine was infiltrated over the old left anterior chest wall scar at the site of his most recent AICD insertion. #15 scalpel blade was utilized to incise through the skin down carefully through subtendinous tissues down to the pseudocapsule exposing the AICD generator. The pseudocapsule was carefully opened and enlarged as necessary to allow for extraction delivery of the AICD generator. Following this the new generator was brought into the field. In sequential fashion, initially beginning with a coronary sinus lead, this lead was then moved from the old generator to the new generator and secured. This was done sequentially for all leads. Old generator was removed from the field and delivered to the [employer] medical claims representative. Wound was carefully irrigated. Hemostasis confirmed. The new generator was delivered back into the subcutaneous pocket. Wound was then closed in 2 layers with 3-0 Vicryl suture. Skin was then reapproximated in a subcuticular manner with 4-0 Monocryl suture. Dermabond was then applied followed by a double pressure dressing. Interrogation of the device revealed appropriate functioning with acceptable parameters. Mr. Gleason was awakened from IV conscious sedation and transported back to the ICU in stable condition. Med[employer]onic generator is model # [id number] Serial # [id number] Right atrial lead had a P wave amplitude of 5.4 mV with an impedance of 532 ohms and a capture threshold of 0.75 v. RV lead was paced with an impedance of 418 ohms and a capture threshold of 0.75 V LV lead had an impedance of 874 ohms with a capture threshold of 0.75 V Parameters include pacing mode of DDDR with a ventricular monitor rate of 133 bpm and a V. tach detection rate of 171 bpm. Ventricular fibrillation detection rate is 200 bpm. Lower rate is 60 and upper rate is 130.
[2022-03-21] MEDS: HYDROcodone-acetaminophen 5-325 mg Tablet 1 TAB PO (18:55)
[2022-03-21] MEDS: atorvastatin 40 mg Tablet PO (20:05)
[2022-03-22] VITALS (13 sets, daily range): BP systolic 91–122; BP diastolic 59–78; PULSE 60–67; RESP 11–20; TEMP 36.6; O2SAT 95–98
[2022-03-22] MEDS: vancomycin 1,500 MG/300 ML PIGGYBACK 200 MG IV ×2 (00:11→08:28)
[2022-03-22] MEDS: HYDROcodone-acetaminophen 5-325 mg Tablet 1 TAB PO ×2 (00:21→04:34)
[2022-03-22 04:37] LABS: Basophils # 0.1 10^3/uL (0.0-0.1); Basophils % 0.6 %; Eosinophils # 0.2 10^3/uL (0.0-0.8); Eosinophils % 2.1 %; Hematocrit 45.2 % (42.0-52.0); Hemoglobin 14.5 g/dL (11.7-16.6); Lymphocytes # 2.2 10^3/uL (0.8-4.8); Lymphocytes % 22.7 %; Mean Corpuscular HGB Conc 32.1 g/dL (30.0-36.0); Mean Corpuscular Hemoglobin 27.4 pg (28.0-34.0); Mean Corpuscular Volume 85.4 fl (80-94); Mean Platelet Volume 8.2 fL (7.4-10.4); Monocytes # 1.1 10^3/uL (0.2-0.9); Monocytes % 10.8 %; Neutrophils # 6.16 10^3/uL (1.8-7.7); Neutrophils % 63.5 %; Nucleated Red Blood Cells % 0 %; Platelet Count 224 10^3/cmm (130-400); Red Blood Count 5.29 10^6/uL (4.1-5.3); Red Cell Distribution Width 14.9 % (12.1-15.1); White Blood Count 9.7 10^3/uL (4.0-10.0)
[2022-03-22 04:58] LABS: Alanine Aminotransferase 17 U/L (0-41); Albumin Level 3.7 g/dL (3.5-5.2); Alkaline Phosphatase 96 IU/L (40-130); Anion Gap 13.1 (5-19); Aspartate Amino Transferase 9 U/L (0-40); Blood Urea Nitrogen 12 mg/dL (6-20); Carbon Dioxide 27 mmol/L (22-29); Chloride 104 mmol/L (98-107); Globulin 2.7 g/dL (1.3-4.6); Glomerular Filtration Rate 120.9 mL/min (90-130); Glucose 81 mg/dL (65-115); Magnesium 2.1 mg/dL (1.7-2.3); Osmolality Calculated 289 mOsm/kg (285-295); Phosphorus 3.9 mg/dL (2.5-4.5); Potassium 4.1 mmol/L (3.5-5.1); Sodium 140 mmol/L (136-145); Total Bilirubin 0.6 mg/dL (0.15-1.2); Total Protein 6.4 g/dL (6.6-8.7)
--- NOTE | 2022-03-22 07:13 | ANE.PACU2 ---
Inpatient post-anesthesia follow up: Airway intact: Yes Vital signs: Temperature 98 F Pulse Rate 62 Respiratory Rate 20 Blood Pressure 99/59 Pulse Oximetry 98 Oxygen Delivery Me thod [Rate & Room Air Delivery Changed T o] Oxygen Delivery Me thod Room Air Oxygen Flow Rate Fraction of Inspir ed Oxygen Hydration adequate: Yes Nausea and vomiting: No Pain level: 1 Mental status: Baseline
--- NOTE | 2022-03-22 08:12 | PM.PN ---
Subjective Subjective: The patient had the device revision yesterday . Has no hematoma or bleeding. Vital signs remained stable. No new arrhythmias on the monitor. Medications: Medication Review Details: Current Medications Acetaminophen (Acetaminophen 325 Mg Tablet) 650 mg PO Q6H PRN PRN Reason: Mild/Mod Pain Or Temp >/= 101 Hydrocodone Bitart/Acetaminophen (Hydrocodone-Acetaminophen 5-325 Mg Tablet) 1 tab PO Q4H PRN PRN Reason: MODERATE PAIN Last Admin: 03/22/22 04:34 Dose: 1 tab Al Hydrox/Mg Hydrox/Simethicone (Gwov-Evn-Zigiorwta-Mishel 30 Ml Udc) 30 ml PO Q4H PRN PRN Reason: INDIGESTION Amlodipine Besylate (Amlodipine 10 Mg Tablet) 10 mg PO DAILY [facility] Last Admin: 03/21/22 08:14 Dose: 10 mg Aspirin (Aspirin 81 Mg Ec Tablet) 81 mg PO DAILY [facility] Last Admin: 03/21/22 08:22 Dose: Not Given Atorvastatin Calcium (Atorvastatin 40 Mg Tablet) 40 mg PO BEDTIME [facility] Last Admin: 03/21/22 20:05 Dose: 40 mg Bisacodyl (Bisacodyl 5 Mg Tablet) 5 mg PO Q6H PRN PRN Reason: Constipation (Use 2nd) Bisacodyl (Bisacodyl 10 Mg Supp) 10 mg KY Q6H PRN PRN Reason: Constipation (Use 5th) Bismuth Subsalicylate (Bismuth Subsalicylate 240 Ml Btl) 30 ml PO PRN PRN PRN Reason: DIARRHEA Diphenhydramine HCl (Diphenhydramine 25 Mg Capsule) 25 mg PO BEDTIME PRN PRN Reason: SLEEP Docusate Sodium (Docusate Sodium 100 Mg Capsule) 100 mg PO BID PRN PRN Reason: Constipation (Use 1st) Guaifenesin (Guaifenesin 100 Mg/5 Ml Udc 10 Ml) 200 mg PO Q4H PRN PRN Reason: COUGH Vancomycin/PEG/NADA/Lysine/Water (Vancocin) 1,500 mg in 300 mls @ 200 mls/hr IV Q8H [facility] Last Infusion: 03/22/22 01:46 Dose: Infused Lactulose (Lactulose Oral Liq 20 Gm/30 Ml Udc) 20 gm PO Q6H PRN PRN Reason: Constipation (Use 3rd) Magnesium Hydroxide (Magnesium Hydroxide 30 Ml Udc) 45 ml PO DAILY PRN PRN Reason: Constipation (use 4th) Morphine Sulfate (Morphine 4 Mg/Ml Sdv 1 Ml) 2 mg IVP Q1H PRN PRN Reason: SEVERE PAIN Promethazine HCl (Promethazine 25 Mg Supp) 25 mg KY Q6H PRN PRN Reason: NAUSEA AND VOMITING Tramadol HCl (Tramadol 50 Mg Tablet) 50 mg PO Q6H PRN PRN Reason: MODERATE PAIN Vitals/I&O/Wt Last Vital Signs Temp 98 F 03/22/22 04:00 Pulse 62 03/22/22 06:00 Resp 20 H 03/22/22 04:30 BP 99/59 03/22/22 04:30 Pulse Ox 98 03/22/22 04:30 O2 Del Method 03/22/22 04:00 03/21/22 03/22/22 03/22/22 22:59 06:59 14:59 Intake Total 237 / 237 989 / 1226 Balance 237 / -863 989 / 126 Weight last 48 hrs Weight 202 lb 12.8 oz Physical Exam Narrative: GENERAL: The patient is alert and oriented times three. Not in any acute distress. HEENT: No significant pallor, icterus or lymphadenopathy.Oral cavity: There are no mucous membrane lesions. Pupils are symmetrical. Fundus is not visualized. NECK: Trachea appears to be central. No masses noted. No JVD or thyromegaly appreciated. RESPIRATORY: The device site appears to have no hematoma or bleeding. Breath sounds are clear bilaterally with no rales or rhonchi BREASTS: Deferred. HEART: The heart sounds are normal. No S3 or S4. No significant murmurs. No pericardial rub ABDOMEN: No vessel pulsations or distention. No tenderness. No organomegaly appreciated. Bowel sounds are normally heard. Scars in the right lower quadrant, appears to have healed well : Deferred. RECTAL: Deferred. LYMPHATIC: No lymphadenopathy noted in the neck. EXTREMITIES: No edema or cyanosis. No clubbing. MUSCULOSKELETAL: No acute joint deformities or swelling SKIN: There are no significant rashes or ecchymosis NEUROPSYCHIATRIC: The patient is alert and oriented x3. Appears to be in a good mood. No tremors or rigidity noted. Data : 03/22/22 04:22 03/22/22 04:22 A&P Assessment and plan (1) Implantable cardioverter-defibrillator (ICD) at end of device life: The patient had the device revision yesterday. The lead function again was found to be in the normal range. Status: Acute (2) Chest pain: The patient has no chest pain. No shortness of breath. No other specific complaints. Status: Acute (3) Noncompliance: The importance of compliance to the follow-up device check was discussed in detail which is understood well Status: Acute Plan If the patient continues remain stable, may be discharged home today. Please make an appointment to be seen [facility] next week for a nurse check. Patient may go home with antibiotics for 5 days-Keflex 500 mg p.o. every 6 hours with multivitamins 1 tablet daily for 2 weeks Appointment with me in the office in 3 months Attestations Medical Necessity Statement*: Possible discharge home today Coding Level of Care Code Acute Net Technical Architect for Trishag Fwd History Expanded Problem Focused Exam Detailed Medical Decision Making Low Complexity Diagnoses Implantable cardioverter-defibrillator (ICD) at end of device life Z45.02 Chest pain R07.9 Noncompliance Z91.19
[2022-03-22] MEDS: aspirin 81 mg EC Tablet PO (08:29)
[2022-03-22] MEDS: amlodipine 10 mg Tablet PO (08:29)
--- NOTE | 2022-03-22 11:18 | PM.DCS ---
Discharge Providers Date of Admission: 03/21/22 01:48 Date of Discharge: March 22, 2022 Attending Provider at Admission: Tj Roberts MD Attending Provider at Discharge: Danielle Thomas MD Diagnoses at Discharge Discharge Diagnosis (1) Implantable cardioverter-defibrillator (ICD) at end of device life: Status: Acute (2) Chest pain: Status: Acute (3) Noncompliance: Status: Acute Reason for Visit Reason for Visit: defibrillator went off, CP Hospital Course Hospital Course This is a very detailed note which I am using at the time of discharge written by Dr. Farris. Silvio Gleason is a 47 year old male with a history of ventricular arrhythmia, recurrent syncope,? is admitted to the hospital with complaints of generalized weakness/ chest pain.? 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 The device interrogation revealed MANJIT.? Cardiology consult is requested for further cardiac evaluation recommendations. This patient is a very poor historian.Patient is complaining of some vague chest pain on the left side of the chest.? According to him, it is more or less constant.? No associated shortness of breath, nausea or sweating.? There may be some waxing and waning of pain.? Patient has been under police custody for the last 1 month or so.? He just got released.? He was incarcerated for probation violation? ? He had a ALEMITE OPERATOR-D,?? Revision in [address] Perez at the [facility] in [facility].? The initial device was implanted by Dr. Espino at the [facility].? This patient apparently has not been to a physician for the last 2 years.? He used to be followed by Dr. Fitzgerald for his heart condition and Ms? Michelle Kodi as the primary care provider.? He has not been to either of them for the last 2 years or so. Device showed MANJIT in November of this year.According the patient, he has not had a syncopal episode.? He seems to think that he might have had a shock from the device yesterday, but is not sure. The reason for the device implantation is not very clear.? Historyis? suggesting that he had ventricular tachycardias.? Had multiple ICD discharges over the years.? He has not been taking any prescription medication for the last 2 years or so. ? Denies any fever or chills.? No cough. He has no history for congestive heart failure.? His father had an ICD ?.? There is a family history of heart disease but the patient is not sure as to what kind. Patient has a history of smoking abuse and methamphetamine abuse.? Questionable history of elevated blood pressure.? No history for diabetes.? He had a coronary angiograms in the past and was told to have no blockages(?). On pacemaker interrogation -On December 06, 2021, voiding of low battery voltage -January 14 morning, lead integrity warning, hydrate NS episodes, sensing integrity counter -No treated episodes -Has had 40 monitored VT episodes most recent was March 15, 2022, 307 AT?AF episodes most recent March 19 we will have to discuss with Dr. Ceron in cardiology in the morning about replacemen Patient went for revision of pacemaker on 03/21. No postoperative complications. He will get Keflex, outpatient cardiology follow-up. Patient is stating that he is going home he has been released from the long-term. Physical Exam Narrative: Pleasant cooperative male No active complaint Saturating well on room air Nonfocal neuro exam Saturating well room air Pacemaker revision site has dressing, no active bleeding or hematoma Discharge Data Studies Completed and Pending Completed Studies During Hospitalization Category Date Time Status XR chest 1V portable 01301 Stat Exams 03/21/22 00:28 Completed CV. echo complete* [id number] Routine Ultrasound 03/21/22 04:01 Completed Pending at discharge Category Date Time Status Complete Blood Count w/Auto AM LABS Lab 03/23/22 04:00 Ordered Complete Blood Count w/Auto AM LABS Lab 03/24/22 04:00 Ordered Comprehensive Metabolic Panel AM LABS Lab 03/23/22 04:00 Ordered Comprehensive Metabolic Panel AM LABS Lab 03/24/22 04:00 Ordered Magnesium AM LABS Lab 03/23/22 04:00 Ordered Magnesium AM LABS Lab 03/24/22 04:00 Ordered Phosphorus AM LABS Lab 03/23/22 04:00 Ordered Phosphorus AM LABS Lab 03/24/22 04:00 Ordered Vancomycin Trough Timed Lab 03/22/22 15:00 Ordered Radiology Impressions Chest X-Ray 03/21/22 00:28 IMPRESSION: 1. Bibasilar opacities may represent atelectasis. 2. Mild cardiomegaly on portable view. 3. Otherwise, no acute radiographic findings in the chest. Laboratory Results WBC 9.7 10^3/uL (4.0-10.0) 03/22/22 04: RBC 5.29 10^6/uL (4.1-5.3) 03/22/22 04:22 Hgb 14.5 g/dL (11.7-16.6) 03/22/22 04:22 Hct 45.2 % (42.0-52.0) 03/22/22 04: MCV 85.4 fl (80-94) 03/22/22 04:22 MCH 27.4 pg (28.0-34.0) L 03/22/22 04: MCHC 32.1 g/dL (30.0-36.0) 03/22/22 04: RDW 14.9 % (12.1-15.1) 03/22/22 04:22 Plt Count 224 10^3/cmm (130-400) 03/22/22 04: MPV 8.2 fL (7.4-10.4) 03/22/22 04: Neut % (Auto) 63.5 % 03/22/22 04: Lymph % (Auto) 22.7 % 03/22/22 04: [place] % (Auto) 10.8 % 03/22/22 04: Eos % (Auto) 2.1 % 03/22/22 04: Baso % (Auto) 0.6 % 03/22/22 04: Neut # (Auto) 6.16 10^3/uL (1.8-7.7) 03/22/22 04: Lymph # (Auto) 2.2 10^3/uL (0.8-4.8) 03/22/22 04:22 [place] # (Auto) 1.1 10^3/uL (0.2-0.9) H 03/22/22 04: Eos # (Auto) 0.2 10^3/uL (0.0-0.8) 03/22/22 04:22 Baso # (Auto) 0.1 10^3/uL (0.0-0.1) 03/22/22 04:22 Nucleated RBC % (auto) 0 % 03/22/22 04:22 Nucleated RBCs # 0.0 /100WBC 03/22/22 04:22 Sodium 140 mmol/L (136-145) 03/22/22 04:22 Potassium 4.1 mmol/L (3.5-5.1) 03/22/22 04:22 Chloride 104 mmol/L (98-107) 03/22/22 04:22 Carbon Dioxide 27 mmol/L (22-29) 03/22/22 04:22 Anion Gap 13.1 (5-19) 03/22/22 04:22 BUN 12 mg/dL (6-20) 03/22/22 04:22 Creatinine 0.7 mg/dL (0.7-1.2) 03/22/22 04:22 GFR Calculation 120.9 mL/min (90-130) 03/22/22 04:22 Glucose 81 mg/dL (65-115) 03/22/22 04:22 Estimat Average Glucose 103 03/21/22 00:32 Hemoglobin A1c 5.2 % (4.0-6.0) 03/21/22 00:32 Calculated Osmolality 289 mOsm/kg (285-295) 03/22/22 04:22 Calcium 9.0 mg/dL (8.5-10.5) 03/22/22 04:22 Phosphorus 3.9 mg/dL (2.5-4.5) 03/22/22 04:22 Magnesium 2.1 mg/dL (1.7-2.3) 03/22/22 04:22 Total Bilirubin 0.6 mg/dL (0.15-1.2) 03/22/22 04:22 AST 9 U/L (0-40) 03/22/22 04:22 ALT 17 U/L (0-41) 03/22/22 04:22 Alkaline Phosphatase 96 IU/L (40-130) 03/22/22 04:22 Troponin T Baseline 6 ng/L (0-15) 03/21/22 00:32 Troponin T 120 Minute 6.00 ng/L (0-15) 03/21/22 03:13 Delta Troponin T 0 ABS# (0-10) 03/21/22 03:13 Troponin T Hi Sens 6Hr 6.16 ng/L (0-15) 03/21/22 06:26 Troponin T Hi Sens 6Hr Delta 0.16 ng/L (0-12) 03/21/22 06:26 NT-Pro-B Natriuret Pep 228 pg/mL (0-125) H 03/21/22 Unknown Total Protein 6.4 g/dL (6.6-8.7) L 03/22/22 04:22 Albumin 3.7 g/dL (3.5-5.2) 03/22/22 04:22 Globulin 2.7 g/dL (1.3-4.6) 03/22/22 04:22 Triglycerides 112 mg/dL (0-150) 03/21/22 00:32 Cholesterol 223 mg/dL (0-200) H 03/21/22 00:32 LDL Cholesterol, Calc 154 mg/dL (50-129) H 03/21/22 00:32 HDL Cholesterol 47 mg/dL (60-100) L 03/21/22 00:32 LDL/HDL Ratio 3.28 RATIO (0.00-3.22) H 03/21/22 00:32 Cholesterol/HDL Ratio 4.74 mg/dL (1.0-5.00) 03/21/22 00:32 TSH 2.66 uIU/mL (0.27-4.20) 03/21/22 00:32 TSH 2.75 uIU/mL (0.27-4.20) 03/21/22 00:32 Urine Opiates Screen Negative ng/mL (Negative) 03/21/22 11:40 Ur Barbiturates Screen Negative ng/mL (Negative) 03/21/22 11:40 Ur Phencyclidine Scrn Negative ng/mL (Negative) 03/21/22 11:40 Ur Amphetamines Screen Negative ng/mL (Negative) 03/21/22 11:40 U Benzodiazepines Scrn Negative ng/mL (Negative) 03/21/22 11:40 Urine Cocaine Screen Negative ng/mL (Negative) 03/21/22 11:40 U Marijuana (THC) Screen Negative ng/mL (Negative) 03/21/22 11:40 Vitals Last Vital Signs Temp 98 F 03/22/22 08:00 Pulse 62 03/22/22 08:00 Resp 20 H 03/22/22 08:00 BP 99/59 03/22/22 08:00 Pulse Ox 98 03/22/22 08:00 O2 Del Method 03/22/22 04:00 Discharge Plan Discharge Patient Disposition: Home Condition: Stable Prescriptions: New cephalexin 500 mg tablet 500 mg PO Q6H 14 Days Qty: 56 0RF tramadol 100 mg tablet 50 mg PO DAILY PRN (Reason: pain) Qty: 14 0RF multivitamin [Daily Vitamin Formula] Tablet 1 tab PO DAILY Qty: 60 2RF Discontinued aspirin [Aspir-81] 81 mg Tablet,Delayed Release (Dr/Ec) 81 mg PO QAM Discharge Orders: Discharge Order (Routine); Ordered 03/22/22 Ordered By: Danielle Thomas Referrals: Estrella Farris MD [Physician] - 3 months Dilia Cope FNP [Nurse Practitioner] - 4-7 days Discharge Diet: Cardiac Discharge Activity: Increase activity as tolerated Patient Instructions: Opioid Safety Activity Restrictions/Additional Instructions: Patient may take the antibiotic Cephalexin 500 mg PO Q6h for 5 days.Multivitamin 1 atab daily for two weeks Discharge Attestations Time Spent in Discharge Care*: less than 30 min Quality Metrics Clinical Quality Measures [ No reported AMI, CVA or VTE this stay] Coding Level of Care Code Acute Chg FW DC note Diagnoses Implantable cardioverter-defibrillator (ICD) at end of device life Z45.02 Chest pain R07.9 Noncompliance Z91.19
--- NOTE | 2022-03-22 13:38 | PC.NURSE ---
apts made attempt to call to house for apts phone has been cancelled
== END 2022-03-22 13:00 | disposition home or self-care (01) | DRG 245 ==
LOC: ER 01:47 → ICU 03:05
PROVIDERS: Thoracic Surgery (Cardiothoracic Vascular Surgery); Admitting Provider Family Medicine; Emergency Provider Emergency Medicine; Visit Provider Internal Medicine
PROC: 0JPT0PZ Removal of Cardiac Rhythm Related Device from Trunk Subcutaneous Tissue and Fascia, Open Approach (ICD-10-PCS; principal; 2022-03-21 16:00)
DX: T82.111A Breakdown (mechanical) of cardiac pulse generator (battery), initial encounter (principal); Y71.1 Therapeutic (nonsurgical) and rehabilitative cardiovascular devices associated with adverse incidents; Z45.02 Encounter for adjustment and management of automatic implantable cardiac defibrillator; M79.7 Fibromyalgia; G89.29 Other chronic pain; M54.9 Dorsalgia, unspecified; F15.11 Other stimulant abuse, in remission; Z82.49 Family history of ischemic heart disease and other diseases of the circulatory system; F17.200 Nicotine dependence, unspecified, uncomplicated
CPT/HCPCS: 36415; 71045; 80053; 80061; 80306; 83036; 83735; 83880; 84100; 84443; 84484; 85025; 93005; 93306; 96365; 99285; C1882; J2250; J2704; J3010; J3370

== ENCOUNTER 2022-03-23 18:39 | Emergency (ER) | payer MEDICARE, MEDICAID, SELFPAY ==
--- NOTE | 2022-03-23 18:40 | XRR_ITS ---
PROCEDURE INFORMATION: Exam: XR Chest Exam date and time: 03/23/2022 6:47 PM Age: 47 years old Clinical indication: Pain; Left-sided; Prior surgery; Surgery date: 3-7 days post-operative; Surgery type: Pacemaker placed 03/20/2022; Additional info: Chest pain TECHNIQUE: Imaging protocol: Radiologic exam of the chest. Views: 1 view. COMPARISON: CR (CHEST, ) 03/21/2022 12:32 AM FINDINGS: Tubes, catheters and devices: Left chest wall multi chamber cardiac device with stable lead positions. Lungs: The lung bases are suboptimally assessed due to technique however the upper lungs are clear of focal consolidation. Tiny calcified granulomas right mid lung zone and right CP angle region. Pleural spaces: Unremarkable. No pleural effusion. No pneumothorax. Heart/Mediastinum: Cardiac silhouette appears normal in size. No obvious vascular congestion. Bones/joints: No acute osseous findings. Other findings: Single view was submitted. XR/XR chest 1V portable [id number] IMPRESSION: No acute findings.
--- NOTE | 2022-03-23 18:52 | W.ED.GENADLT ---
HPI - General Adult General: Chief complaint: Chest Pain Stated complaint: CHEST PAIN Time Seen by Provider: 03/23/22 18:40 History of Present Illness: Patient is a 47-year-old male currently incarcerated with a history of paroxysmal ventricular tachycardia status post AICD placement [employer] on 03/22/2022 for concerns of acute onset of chest pain. Patient tells me that on 03/21/2022 he underwent AICD placement. Yesterday he was [facility] back to prison. Since 230 this afternoon, patient has had intermittent chest pain on the left side. Patient tells me that chest pain is ongoing, pressure-like occasionally sharp. Patient denies any pain or shocks from his ICD device. Patient denies any associated exertional chest pain, dyspnea, or pleuritic chest pain. Patient has any cough, runny nose sore throat, fever or chills. Patient has no abdominal complaints no nausea/vomiting, diarrhea, melena/hematochezia. Patient has no complaints denies any leg swelling, or prior history of VTE. Onset: 2:30pm Duration:ongoing intermittent Location:home Severity:moderate Associated symptoms: Reports chest pain; Deny dyspnea, nausea, rash, palpitations or vomiting Review of Systems Const: Denies: fever(s) or chills Eyes: Denies: change in vision ENMT: Denies: mouth pain Card: Reports: chest pain; Denies: palpitations Resp: Denies: dyspnea or non-productive cough GI: Denies: abdominal pain, nausea, vomiting or diarrhea : Denies: dysuria Musc: Denies: extremity pain Skin/Breast: Denies: rash or new lesions Neuro: Denies: weakness in extremities Psych: Reports: other (Normal mood) Faheem/Lymph: Denies: easy bruising PFSH ED PFSH: Medical History Chest pain History of back pain History of fibromyalgia History of syncope Implantable cardioverter-defibrillator (ICD) at end of device life Noncompliance Pacemaker lead malfunction Surgical History History of hernia surgery History of implantable cardioverter-defibrillator (ICD) placement Family History Father CAD (coronary artery disease) Pacemaker Mother Hypothyroidism Social History Smoking and tobacco status: never smoked Alcohol intake: never Physical Exam Const: COMMON NORMALS: alert HENMT: COMMON NORMALS: atraumatic HEAD & SCALP: atraumatic MOUTH: moist mucous membranes not abnormal Eye: COMMON NORMALS: EOMs intact bilaterally and conjunctivae normal CONJUNCTIVA: Yes conjunctivae normal Neck/C-Spine: COMMON NORMALS: full ROM and supple Chest: OTHER: +ICD site apears to be dry/clean/intact Resp: COMMON NORMALS: normal respiratory effort and clear to auscultation bilaterally AUSCULTATION: clear to auscultation bilaterally Cardio: COMMON NORMALS: regular rate RATE: regular rate GI: COMMON NORMALS: Soft to palpation and non-tender PALPATION: Yes Soft to palpation OTHER: No focal TTP. NO guarding rebound, guarding, rigidity. No CVA tenderness to percussion. Neg Da Silva/Neg McBurney's point tenderness, no suprabupic tenderness to palpation. Extremity: COMMON NORMALS: full ROM OTHER: +No lower extremity swellings b/l Neuro: SENSORIUM/ORIENTATION: Yes alert MOTOR EXAM: No Abnormal motor strength present and Other motor observations present (no focal motor deficits) Psych: COMMON NORMALS: speech normal SPEECH: Yes normal speech MOOD & AFFECT: Yes euthymic mood Course Vital Signs: Vital signs: Vital Signs Pulse Rate 77 03/23/22 21:55 Respiratory Rate 21 H 03/23/22 21:55 Blood Pressure 130/88 03/23/22 21:55 Pulse Oximetry 96 03/23/22 21:55 Oxygen Delivery Me thod 03/23/22 19:00 MDM - General Adult Medical Decision Making 47-year-old male with a recent AICD placement for paroxysmal ventricular tachycardia presenting to the emergency room for concerns of left-sided chest pain since 230pm today. Patient currently reports the chest pain is 4 out of 10. Patient received aspirin. 2+ radial pulses bilaterally, no Homans' sign lower extremity. White count of 11.3. Rest of lab within normal limit. Patient has had recent ICD placement. Since D-dimer appears to be within normal limit. I see device was interrogated which showed atrial rhythm. There is no signs of VT activities or any other acute dysrhythmia. Patient had 2 troponin within normal limit. EKG is nonischemic. At present, I have offered patient admission versus close outpatient observation. Patient elects for close outpatient followup. I explained the risk of leaving the hospital today which includes worsening dysrhythmia, MO and even . Patient verbalized understand the risk and and shows the alternative of following up closely with cardiology. I have given patient follow up with our foster care case manager to be seen by our outpatient Cardiology for chest pain. Patient aware of a call from our foster care case manager to schedule for appointment(s) and verbalizes understanding of the importance of following up. Disposition: Discharge. Patient counseled regarding diagnostic impression, treatment plan. Patient given ED strict return precautions to return for continuation, worsening, or development of new symptoms. Instructed to f/u w/ PCP regarding symptoms today. Patient verbalized understanding. Lab Data : 03/23/22 19:15 03/23/22 19:15 Radiology Impressions Chest X-Ray 03/23/22 18:40 IMPRESSION: No acute findings. Laboratory Results WBC 11.3 10^3/uL (4.0-10.0) H 03/23/22 19:15 RBC 5.88 10^6/uL (4.1-5.3) H 03/23/22 19:15 Hgb 16.4 g/dL (11.7-16.6) 03/23/22 19:15 Hct 50.0 % (42.0-52.0) 03/23/22 19:15 MCV 85.0 fl (80-94) 03/23/22 19:15 MCH 27.9 pg (28.0-34.0) L 03/23/22 19:15 MCHC 32.8 g/dL (30.0-36.0) 03/23/22 19:15 RDW 15.0 % (12.1-15.1) 03/23/22 19:15 Plt Count 263 10^3/cmm (130-400) 03/23/22 19:15 MPV 8.1 fL (7.4-10.4) 03/23/22 19:15 Neut % (Auto) 68.7 % 03/23/22 19:15 Lymph % (Auto) 15.9 % 03/23/22 19:15 Rutherford % (Auto) 13.1 % 03/23/22 19:15 Eos % (Auto) 1.1 % 03/23/22 19:15 Baso % (Auto) 0.7 % 03/23/22 19:15 Neut # (Auto) 7.79 10^3/uL (1.8-7.7) H 03/23/22 19:15 Lymph # (Auto) 1.8 10^3/uL (0.8-4.8) 03/23/22 19:15 Rutherford # (Auto) 1.5 10^3/uL (0.2-0.9) H 03/23/22 19:15 Eos # (Auto) 0.1 10^3/uL (0.0-0.8) 03/23/22 19:15 Baso # (Auto) 0.1 10^3/uL (0.0-0.1) 03/23/22 19:15 Nucleated RBC % (auto) 0 % 03/23/22 19:15 Nucleated RBCs # 0.0 /100WBC 03/23/22 19:15 D-Dimer 0.32 ug/mIFEU (0-0.59) 03/23/22 19:15 Sodium 140 mmol/L (136-145) 03/23/22 19:15 Potassium 4.1 mmol/L (3.5-5.1) 03/23/22 19:15 Chloride 102 mmol/L (98-107) 03/23/22 19:15 Carbon Dioxide 22 mmol/L (22-29) 03/23/22 19:15 Anion Gap 20.1 (5-19) H 03/23/22 19:15 BUN 14 mg/dL (6-20) 03/23/22 19:15 Creatinine 0.6 mg/dL (0.7-1.2) L 03/23/22 19:15 GFR Calculation 144.4 mL/min (90-130) H 03/23/22 19:15 Glucose 89 mg/dL (65-115) 03/23/22 19:15 Calculated Osmolality 290 mOsm/kg (285-295) 03/23/22 19:15 Calcium 9.7 mg/dL (8.5-10.5) 03/23/22 19:15 Troponin T Baseline 9 ng/L (0-15) 03/23/22 19:15 Troponin T 120 Minute 9.16 ng/L (0-15) 03/23/22 20:49 Delta Troponin T 0.16 ABS# (0-10) 03/23/22 20:49 Imaging Data Other Imaging: Radiologist's impression: [address] [address] XRay Report Signed Patient: Silvio Glesaon Unit #: [id number] : 1975 Age/Sex: 47 / M ADM Date: 03/23/22 Loc: ER Room/Bed: Attending Dr: Ordering Provider/Ordering MD: August Bowman MD Date of Service: 03/23/22 Procedure(s): XR chest 1V portable [id number] Accession Number(s): [id number] Report Number: [id number] PROCEDURE INFORMATION: Exam: XR Chest Exam date and time: 03/23/2022 6:47 PM Age: 47 years old Clinical indication: Pain; Left-sided; Prior surgery; Surgery date: 3-7 days post-operative; Surgery type: Pacemaker placed 03/20/2022; Additional info: Chest pain TECHNIQUE: Imaging protocol: Radiologic exam of the chest. Views: 1 view. COMPARISON: CR (CHEST, ) 03/21/2022 12:32 AM FINDINGS: Tubes, catheters and devices: Left chest wall multi chamber cardiac device with stable lead positions. Lungs: The lung bases are suboptimally assessed due to technique however the upper lungs are clear of focal consolidation. Tiny calcified granulomas right mid lung zone and right CP angle region. Pleural spaces: Unremarkable. No pleural effusion. No pneumothorax. Heart/Mediastinum: Cardiac silhouette appears normal in size. No obvious vascular congestion. Bones/joints: No acute osseous findings. Other findings: Single view was submitted. XR/XR chest 1V portable [id number] IMPRESSION: No acute findings. ? Dictated By: Stephane Del Angel MD Signed By: Stephane Del Angel MD Signed Date/Time: 03/23/221929 DD/ 46 Discharge Plan Discharge Patient Disposition: Home Clinical Impression: Chest pain Condition: Stable Prescriptions: No Action cephalexin 500 mg tablet 500 mg PO Q6H 14 Days Qty: 56 0RF tramadol 100 mg tablet 50 mg PO DAILY PRN (Reason: pain) Qty: 14 0RF Daily Vitamin Formula Tablet 1 tab PO DAILY Qty: 60 2RF Discharge Orders: Discharge ED (Routine); Ordered 03/23/22 Ordered By: August Bowman Discharge Diet: Advance as tolerated Discharge Activity: Increase activity as tolerated Activity Restrictions/Additional Instructions: Come back to the emergency room if your chest pain worsens, have any fever or chills, worsening shortness of breath, worsening exertional lightheadedness, or any new or concerning complaints. Our foster care case manager will have you follow-up with Cardiology in the next few days. You would be expected to have a phone call with our foster care case manager who will put you on the schedule. You can expect a call from us in the next 2-3 days. If you don't hear from us, call us back in the emergency room at [phone]. Coding Level of Care Code ED Pricing Director for Lionel Villarreal Exam Comprehensive
[2022-03-23 19:00] VITALS: PULSE 81; RESP 20; O2SAT 98; BMI 27.1
[2022-03-23 19:22] LABS: Basophils # 0.1 10^3/uL (0.0-0.1); Basophils % 0.7 %; Eosinophils # 0.1 10^3/uL (0.0-0.8); Eosinophils % 1.1 %; Hemoglobin 16.4 g/dL (11.7-16.6); Lymphocytes # 1.8 10^3/uL (0.8-4.8); Lymphocytes % 15.9 %; Mean Corpuscular HGB Conc 32.8 g/dL (30.0-36.0); Mean Corpuscular Hemoglobin 27.9 pg (28.0-34.0); Mean Platelet Volume 8.1 fL (7.4-10.4); Monocytes # 1.5 10^3/uL (0.2-0.9); Monocytes % 13.1 %; Neutrophils # 7.79 10^3/uL (1.8-7.7); Neutrophils % 68.7 %; Nucleated Red Blood Cells % 0 %; Platelet Count 263 10^3/cmm (130-400); Red Blood Count 5.88 10^6/uL (4.1-5.3); White Blood Count 11.3 10^3/uL (4.0-10.0)
[2022-03-23] MEDS: aspirin 325 mg Tablet PO (19:30)
--- NOTE | 2022-03-23 19:32 | ECG_ITS ---
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 Measurements Intervals [place] Rate: 72 P: 32 ND: 134 QRS: -66 QRSD: 147 T: 86 QT: 440 QTc: 482 Interpretive Statements ELECTRONIC VENTRICULAR PACEMAKER Compared to ECG 03/21/2022 06:19:34 Atrial-paced complex(es) or rhythm no longer present Electronically Signed On 03-23-2022 20:29:41 CDT by Shashi Garcia M.D. [email or web address].[employer]/store/[id number] f
[2022-03-23 19:36] LABS: D Dimer 0.32 ug/mIFEU (0-0.59)
[2022-03-23 20:00] LABS: Blood Urea Nitrogen 14 mg/dL (6-20); Calcium 9.7 mg/dL (8.5-10.5); Carbon Dioxide 22 mmol/L (22-29); Chloride 102 mmol/L (98-107); Glomerular Filtration Rate 144.4 mL/min (90-130); Glucose 89 mg/dL (65-115); Osmolality Calculated 290 mOsm/kg (285-295); Sodium 140 mmol/L (136-145)
--- NOTE | 2022-03-23 20:01 | ECG_ITS ---
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 Measurements Intervals [place] Rate: 73 P: 35 [place]: 140 QRS: -61 QRSD: 150 T: 90 QT: 448 QTc: 495 Interpretive Statements ELECTRONIC VENTRICULAR PACEMAKER Compared to ECG 03/23/2022 19:32:09 No significant changes Electronically Signed On 03-23-2022 20:32:57 CDT by Shashi Garcia M.D. [email or web address]Sigm[facility] Pharmamer[facility] centerArmune [employer]/store/[id number]
[2022-03-23 20:02] LABS: Anion Gap 20.1 (5-19); Potassium 4.1 mmol/L (3.5-5.1); Troponin(5th) Baseline 9 ng/L (0-15)
[2022-03-23 20:38] VITALS: BP 130/83; PULSE 73; RESP 16; O2SAT 95
[2022-03-23 21:27] LABS: Troponin 5 2HR 9.16 ng/L (0-15)
[2022-03-23 21:47] LABS: Troponin 5 2HR Delta 0.16 ABS# (0-10)
[2022-03-23 21:55] VITALS: BP 130/88; PULSE 77; RESP 21; O2SAT 96
--- NOTE | 2022-03-26 10:42 | DCPLANNER ---
Addendum entered by Ruth Tovar 04/12/22 08:13: Patient had a follow up appointment scheduled for 03.28.22 with Dilia Cope at [facility] - patient did attend appointment. Original Note: qualitative field project manager had message to schedule a follow up appointment for patient with cardiology. qualitative field project manager sent patients information to the front office staff at [facility]. Patients information will be printed and reviewed. Clinic will call patient with appointment information.
== END 2022-03-23 21:57 | disposition home or self-care (01) ==
PROVIDERS: Emergency Provider Emergency Medicine
DX: R07.9 Chest pain, unspecified (principal)
CPT/HCPCS: 71045; 80048; 84484; 85025; 85378; 93005; 99285

== ENCOUNTER → 2022-03-28 14:24 | Outpatient (BNVA) | payer MEDICARE, MEDICAID, SELFPAY | PROVIDERS: Visit Provider Nurse Practitioner Family | DX: I10 Essential (primary) hypertension (principal); Z95.810 Presence of automatic (implantable) cardiac defibrillator | CPT/HCPCS: 99213; 99214 ==

== ENCOUNTER → 2022-10-23 09:29 | Outpatient (BNVA) | payer MEDICARE, MEDICAID, SELFPAY | PROVIDERS: PCP Family Medicine; Visit Provider Nurse Practitioner Family | DX: I50.20 Unspecified systolic (congestive) heart failure (principal); Z95.810 Presence of automatic (implantable) cardiac defibrillator; R00.2 Palpitations | CPT/HCPCS: 36415; 80048; 83880; 99214 ==

== ENCOUNTER 2022-10-30 10:15 | Outpatient (CLI) | payer MEDICARE, MEDICAID, SELFPAY ==
[2022-10-30 11:15] LABS: Alanine Aminotransferase 21 U/L (0-41); Albumin Level 4.4 g/dL (3.5-5.2); Alkaline Phosphatase 122 U/L (40-130); Anion Gap 15.7 (5-19); Aspartate Amino Transferase 19 U/L (0-40); Blood Urea Nitrogen 25 mg/dL (6-20); Carbon Dioxide 24 mmol/L (22-29); Chloride 105 mmol/L (98-107); Chol HDL Ratio 3.51 mg/dL (1.0-5.00); Cholesterol 214 mg/dL (0-200); Globulin 2.9 g/dL (1.3-4.6); Glomerular Filtration Rate 120.9 mL/min (90-130); Glucose 104 mg/dL (65-115); HDL Cholesterol 61 mg/dL (60-100); LDL Cholesterol Calculated 136 mg/dL (50-129); LDL HDL Ratio 2.23 RATIO (0.00-3.22); NT Pro B Type Natriuretic Pept 79 pg/mL (0-125); Osmolality Calculated 295 mOsm/kg (285-295); Potassium 4.7 mmol/L (3.5-5.1); Sodium 140 mmol/L (136-145); Total Bilirubin 0.3 mg/dL (0.15-1.2); Total Protein 7.3 g/dL (6.6-8.7); Triglycerides 85 mg/dL (0-150)
== END 2022-10-30 10:16 | disposition home or self-care (01) ==
LOC: LAB 10:16
PROVIDERS: PCP Family Medicine; Visit Provider Internal Medicine Cardiovascular Disease
DX: I10 Essential (primary) hypertension (principal); I50.20 Unspecified systolic (congestive) heart failure; Z95.810 Presence of automatic (implantable) cardiac defibrillator
CPT/HCPCS: 80048; 80061; 80076; 83880

== ENCOUNTER → 2022-11-13 14:00 | Outpatient (BNVA) | payer MEDICARE, MEDICAID, SELFPAY | PROVIDERS: PCP Family Medicine; Visit Provider Nurse Practitioner Family | DX: I11.0 Hypertensive heart disease with heart failure (principal); I50.20 Unspecified systolic (congestive) heart failure; Z95.810 Presence of automatic (implantable) cardiac defibrillator; I48.91 Unspecified atrial fibrillation; Z79.01 Long term (current) use of anticoagulants | CPT/HCPCS: 99214 ==

== ENCOUNTER → 2023-08-20 09:41 | Outpatient (BNVA) | payer MEDICARE, MEDICAID, SELFPAY | PROVIDERS: PCP Nurse Practitioner Family; Visit Provider Nurse Practitioner Family | DX: I10 Essential (primary) hypertension (principal); I50.20 Unspecified systolic (congestive) heart failure; Z13.6 Encounter for screening for cardiovascular disorders; Z79.899 Other long term (current) drug therapy; E55.9 Vitamin D deficiency, unspecified | CPT/HCPCS: 80053; 80061; 81003; 82306; 83036; 84443; 85025 ==

== ENCOUNTER → 2023-08-27 10:01 | Outpatient (BNVA) | payer MEDICARE, MEDICAID, SELFPAY | PROVIDERS: PCP Nurse Practitioner Family; Visit Provider Internal Medicine Cardiovascular Disease | DX: Z95.810 Presence of automatic (implantable) cardiac defibrillator (principal); I11.0 Hypertensive heart disease with heart failure; I50.22 Chronic systolic (congestive) heart failure; I48.19 Other persistent atrial fibrillation | CPT/HCPCS: 99214 ==

== ENCOUNTER → 2023-09-10 16:55 | Outpatient (BNVA) | payer MEDICARE, MEDICAID, SELFPAY | PROVIDERS: PCP Nurse Practitioner Family; Visit Provider Internal Medicine | DX: Z45.02 Encounter for adjustment and management of automatic implantable cardiac defibrillator (principal) | CPT/HCPCS: 93296 ==

== ENCOUNTER → 2024-01-01 12:56 | Outpatient (BNVA) | payer MEDICARE, MEDICAID, SELFPAY | PROVIDERS: PCP Nurse Practitioner Family; Visit Provider Internal Medicine Cardiovascular Disease | DX: Z45.02 Encounter for adjustment and management of automatic implantable cardiac defibrillator (principal) | CPT/HCPCS: 93296 ==

== ENCOUNTER → 2024-04-14 10:46 | Outpatient (BNVA) | payer MEDICARE, MEDICAID, SELFPAY | PROVIDERS: PCP Nurse Practitioner Family; Visit Provider Internal Medicine Cardiovascular Disease | DX: Z45.02 Encounter for adjustment and management of automatic implantable cardiac defibrillator (principal) | CPT/HCPCS: 93296 ==

== ENCOUNTER → 2024-09-15 09:29 | Outpatient (BNVA) | payer MEDICARE, MEDICAID, SELFPAY | PROVIDERS: PCP Nurse Practitioner Family; Visit Provider Internal Medicine | DX: Z45.02 Encounter for adjustment and management of automatic implantable cardiac defibrillator (principal) | CPT/HCPCS: 93296 ==

== ENCOUNTER → 2024-11-22 15:34 | Outpatient (BNVA) | payer MEDICARE, MEDICAID, SELFPAY | PROVIDERS: PCP Nurse Practitioner Family; Visit Provider Internal Medicine Cardiovascular Disease | DX: R07.9 Chest pain, unspecified (principal); R06.02 Shortness of breath; R53.1 Weakness; R53.83 Other fatigue; N18.9 Chronic kidney disease, unspecified; Z79.01 Long term (current) use of anticoagulants | CPT/HCPCS: 36415; 80053; 83880; 84443; 85025; 93005; 99215 ==

== ENCOUNTER 2024-11-30 11:07 | Outpatient (CLI) | payer MEDICARE, MEDICAID, SELFPAY ==
--- NOTE | 2024-11-30 11:15 | USCV_ITS ---
Silvio Gleason Age: 49 Gender: M : 1975 Exam Date: 11/30/2024 11:20 Ordering Phys: Estrella Farris MD ([email or web address]) Technologist: Exam Location: [facility] Indication: cp cad BP: 130 / 80 HR: 60 Rhythm: Sinus Technical Quality: Adequate MEASUREMENTS (Male / Female) Normal Values 2D ECHO LV Diastolic Diameter PLAX 4.8 cm 4.2 - 5.9 / 3.9 - 5.3 cm IVS Diastolic Thickness 1.2 cm 0.6 - 1.0 / 0.6 - 0.9 cm IVS Systolic Thickness 1.3 cm LVPW Diastolic Thickness 1.1 cm 0.6 - 1.0 / 0.6 - 0.9 cm LVPW Systolic Thickness 1.3 cm LVOT Diameter 2.2 cm LV Ejection Fraction 2D Teich 39.7 % LV Ejection Fraction MOD 4C 56.6 % LV Ejection Fraction MOD 2C 40.8 % LV Ejection Fraction 2C AL 42.0 % LA Diameter 3.2 cm RA Systolic Volume 4C AL 48.5 ml RA Systolic Volume 4C MOD 46.0 ml Aorta at Sinotubular Diameter 3.4 cm IVC Diameter 2.4 cm M-MODE LA Ao Ratio MM 0.9 AV Cusp Separation MM 2.6 cm DOPPLER AV Peak Velocity 116.0 cm/s LVOT Peak Velocity 103.0 cm/s AV Area Cont Eq vti 3.7 cm squared AV Area Cont Eq pk 3.5 cm squared MV Area PHT 3.0 cm squared TV Peak Velocity 174.5 cm/s TR Peak Velocity 190.0 cm/s TR Peak Gradient 14.4 mmHg TV Peak E Velocity 82.0 cm/s PV Peak Velocity 152.0 cm/s FINDINGS Left Ventricle Diffuse hypokinesia of the septum with the dyskinetic basal septal segment. LV ejection fraction of 42%.Grade I/IV diastolic dysfunction (abnormal relaxation filling pattern), normal to mildly elevated filling pressures. Right Ventricle Normal right ventricular size and systolic function. Catheter/pacemaker wire in the right ventricular cavity. Right Atrium Normal right atrial size. Catheter/pacemaker wire in the right atrial appendage. Left Atrium Normal left atrial size. Mitral Valve No gross abnormalities noted Aortic Valve No gross abnormalities noted Tricuspid Valve No gross abnormalities noted Pulmonic Valve Mild pulmonary valve regurgitation. Pericardium No pericardial effusion. Aorta Normal aortic annulus size. IVC Normal inferior vena cava. CONCLUSIONS Diffuse hypokinesia of the septum with the dyskinetic basal septal segment. LV ejection fraction of 42%.Grade I/IV diastolic dysfunction (abnormal relaxation filling pattern), normal to mildly elevated filling pressures. Normal right ventricular size and systolic function. Catheter/pacemaker wire in the right ventricular cavity. Pacemaker /defibrillator wire in the right ventricle There is no pericardial effusion. Compared to the study from 03/21/2022, there is slight drop in the LV ejection fraction from 50 to 42 % Dr Estrella Farris MD [facility] (Electronically Signed) Final Date: 03 December 2024 07:31 S
== END 2024-11-30 11:08 | disposition home or self-care (01) ==
PROVIDERS: PCP Nurse Practitioner Family; Visit Provider Internal Medicine Cardiovascular Disease
DX: R06.09 Other forms of dyspnea (principal); R93.1 Abnormal findings on diagnostic imaging of heart and coronary circulation; Z96.89 Presence of other specified functional implants; I37.1 Nonrheumatic pulmonary valve insufficiency
CPT/HCPCS: 93306

== ENCOUNTER → 2025-01-10 11:39 | Outpatient (BNVA) | payer MEDICARE, MEDICAID, SELFPAY | PROVIDERS: PCP Nurse Practitioner Family; Referring Provider Family Medicine; Visit Provider Internal Medicine Rheumatology | DX: M79.7 Fibromyalgia (principal); M54.41 Lumbago with sciatica, right side; M45.6 Ankylosing spondylitis lumbar region; G89.29 Other chronic pain; M13.842 Other specified arthritis, left hand; M13.841 Other specified arthritis, right hand; M47.897 Other spondylosis, lumbosacral region; M51.360 Other intervertebral disc degeneration, lumbar region with discogenic back pain only | CPT/HCPCS: 36415; 72100; 72202; 73130; 80076; 82306; 82565; 85651; 86140; 86480; 86704; 86803; 86812; 87340; 99204 ==

== ENCOUNTER → 2025-01-28 08:00 | Outpatient (BNVA) | payer MEDICARE, MEDICAID, SELFPAY | PROVIDERS: PCP Nurse Practitioner Family; Visit Provider Nurse Practitioner Family | DX: I11.0 Hypertensive heart disease with heart failure (principal); I50.22 Chronic systolic (congestive) heart failure; I48.19 Other persistent atrial fibrillation; Z79.01 Long term (current) use of anticoagulants; Z95.810 Presence of automatic (implantable) cardiac defibrillator; F17.220 Nicotine dependence, chewing tobacco, uncomplicated | CPT/HCPCS: 99214 ==

== ENCOUNTER → 2025-02-02 10:33 | Outpatient (BNVA) | payer MEDICARE, MEDICAID, SELFPAY | PROVIDERS: PCP Nurse Practitioner Family; Visit Provider Internal Medicine | DX: Z45.02 Encounter for adjustment and management of automatic implantable cardiac defibrillator (principal); Z45.018 Encounter for adjustment and management of other part of cardiac pacemaker; Z53.9 Procedure and treatment not carried out, unspecified reason | CPT/HCPCS: 93296 ==

== ENCOUNTER → 2025-02-08 10:53 | Outpatient (BNVA) | payer MEDICARE, MEDICAID, SELFPAY | PROVIDERS: PCP Nurse Practitioner Family; Visit Provider Internal Medicine Cardiovascular Disease | DX: Z45.02 Encounter for adjustment and management of automatic implantable cardiac defibrillator (principal) | CPT/HCPCS: 93296 ==

== ENCOUNTER → 2025-02-18 09:53 | Outpatient (BNVA) | payer MEDICARE, MEDICAID, SELFPAY | PROVIDERS: PCP Family Medicine; Visit Provider Nurse Practitioner Family | DX: I11.0 Hypertensive heart disease with heart failure (principal); I50.22 Chronic systolic (congestive) heart failure; I48.91 Unspecified atrial fibrillation; Z79.01 Long term (current) use of anticoagulants; F17.220 Nicotine dependence, chewing tobacco, uncomplicated; Z95.810 Presence of automatic (implantable) cardiac defibrillator | CPT/HCPCS: 99214 ==

== ENCOUNTER → 2025-03-30 14:11 | Outpatient (BNVA) | payer MEDICARE, MEDICAID, SELFPAY | PROVIDERS: PCP Nurse Practitioner Family; Visit Provider Internal Medicine Rheumatology | DX: M54.42 Lumbago with sciatica, left side (principal); M54.41 Lumbago with sciatica, right side; G89.29 Other chronic pain; I50.22 Chronic systolic (congestive) heart failure; Z95.810 Presence of automatic (implantable) cardiac defibrillator; Z79.899 Other long term (current) drug therapy; Z71.85 Encounter for immunization safety counseling; M06.041 Rheumatoid arthritis without rheumatoid factor, right hand; M06.042 Rheumatoid arthritis without rheumatoid factor, left hand | CPT/HCPCS: 99214 ==

== ENCOUNTER → 2025-05-18 10:50 | Outpatient (BNVA) | payer MEDICARE, MEDICAID, SELFPAY | PROVIDERS: PCP Nurse Practitioner Family; Visit Provider Internal Medicine Cardiovascular Disease | DX: Z45.02 Encounter for adjustment and management of automatic implantable cardiac defibrillator (principal) | CPT/HCPCS: 93296 ==

== ENCOUNTER → 2025-07-18 09:54 | Outpatient (BNVA) | payer MEDICARE, MEDICAID, SELFPAY | PROVIDERS: PCP Nurse Practitioner Family; Visit Provider Nurse Practitioner Family | DX: I11.0 Hypertensive heart disease with heart failure (principal); I50.23 Acute on chronic systolic (congestive) heart failure; Z95.810 Presence of automatic (implantable) cardiac defibrillator; I48.91 Unspecified atrial fibrillation; F17.220 Nicotine dependence, chewing tobacco, uncomplicated | CPT/HCPCS: 99214 ==